=== PATIENT | female | born 1975 | race Caucasian/White ===

== ENCOUNTER 2017-06-29 06:42 | Day surgery (SDC) | payer BC ==
[2017-06-25 10:11] VITALS: BMI 33.8
[~2017-06-29 06:42] MED LIST: LACTATED RINGERS 1,000 ML IV SCH; MIDAZOLAM 2 MG/2 ML VIAL IV PRN; MORPHINE SULFATE 4 MG/ML SYRINGE IV PRN; Pre Op ABX Message 1 EACH MISC MISCELLANE ONE
[2017-06-29] MEDS ORDERED: ONDANSETRON 4 MG/2 ML VIAL IVP ONE (07:06)
[2017-06-29] MEDS ORDERED: DEXAMETHASONE SOD PHOSPHATE 10 MG/ML 1 ML VIAL IV ONE (07:07)
[2017-06-29] MEDS ORDERED: BUPIVACAINE (PF) 0.25% 30 ML VIAL SQ ONE ×2 (07:36→08:11)
[2017-06-29] MEDS ORDERED: SUCCINYLCHOLINE CHLORIDE 100 MG/5 ML SYR IV ONE (07:38)
[2017-06-29] MEDS ORDERED: HYDROmorphone (PF) 1 MG/ML ONE (07:38)
[2017-06-29] MEDS ORDERED: ACETAMINOPHEN IV (For NPO) 1,000 MG/100 ML VIAL ONE (07:38)
[2017-06-29] MEDS ORDERED: PROPOFOL 10 MG/ML 20 ML VIAL IV ONE (07:38)
[2017-06-29] MEDS ORDERED: KETOROLAC 30 MG/ML 1 ML VIAL ONE (07:38)
[2017-06-29] MEDS ORDERED: fentaNYL (PF) 50 MCG/ML 2 ML AMP ONE (07:38)
[2017-06-29] MEDS ORDERED: LIDOCAINE 1% INJ 10MG/ML (20 ML MDV) ONE (07:38)
[2017-06-29] MEDS ORDERED: MIDAZOLAM 2 MG/2 ML VIAL ONE (07:38)
--- NOTE | 2017-06-29 08:22 | P.OP ---
Date of Procedure: 06/29/17 Preoperative Diagnosis: Family planning Postoperative Diagnosis: Same Procedure(s) Performed: Laparoscopic tubal ligation with Filshie clips Anesthesia: MISBAH Surgeon: Ranjan Trujillo Estimated Blood Loss (ml): 3 IV fluids (ml): 500 Urine output (ml): 50 Pathology: none sent Condition: stable Disposition: same day Operative Findings: Normal female pelvic anatomy Description of Procedure: Patient was taken to the operating suite where a general anesthetic was found be adequate. She was prepped and draped in the normal sterile fashion and placed in dorsal lithotomy position. Initially a speculum was inserted into the vagina and the anterior lip of the cervix was identified and grasped with an Allis clamp. Uterus was then sounded to 10 cm and cervix was minimally dilated. A Heather manipulator was inserted without difficulty speculum and Allis clamp were removed and red rubber catheter was used to drain the bladder of urine. Gloves were then changed and attention was turned to abdominal portion procedure where 3 mL of quarter percent Marcaine was injected periumbilically. Through this injected anesthetic a 5 mm skin incision was made and through this incision under direct visualization with an optical trocar and sleeve the camera was inserted. Once peritoneal placement was assured gas was allowed to fully insufflate the abdomen and patient's placement steep Trendelenburg position. A second 8 mm skin incision was then made in her scar in the midline. An 8 mm trocar and sleeve were inserted again under direct visualization and observations the pelvis were noted as above. Fallopian tubes were identified first the right tube than the left tube had a Filshie clip applied approximately 3 cm from uterine cornu. With no bleeding noted from the mesosalpinx instruments were removed and gas was allowed to fully expel from the abdomen. 5 deep breaths were provided during this process. Sleeves were then removed and 4-0 Vicryl was used to close the incision incisions subcuticularly and the remaining 7 mL of quarter percent Marcaine was injected around these incisions. Sponge, lap, needle counts were all correct 2. Patient was then taken to the recovery room in stable and satisfactory condition. Plan - Discharge Summary New Discharge Prescriptions: New Ibuprofen [Motrin] 800 mg PO Q8HR PRN #30 tab PRN Reason: Pain No Action Cholestyramine (with Sugar) [Questran] 4 gm PO DAILY Atenolol 12.5 mg PO DAILY Multivitamins, Thera [Multivitamin (formulary)] 1 tab PO DAILY [place]-3 Fatty Acids/Fish Oil [Fish Oil 1,000 mg Softgel] 1 each PO DAILY Discharge Medication List Cholestyramine (with Sugar) [Questran] 4 gm PO DAILY 01/11/15 [History] Atenolol 12.5 mg PO DAILY 06/25/17 [History] Multivitamins, Thera [Multivitamin (formulary)] 1 tab PO DAILY 06/25/17 [History ] [place]-3 Fatty Acids/Fish Oil [Fish Oil 1,000 mg Softgel] 1 each PO DAILY [History] Ibuprofen [Motrin] 800 mg PO Q8HR PRN #30 tab 06/29/17 [Rx] Follow up Appointment(s)/Referral(s): Ranjan Trujillo DO [Doctor of Osteopathic Medicine] - 2 Weeks Activity/Diet/Wound Care/Special Instructions: No heavy lifting, limit stairs and driving, and pelvic rest. If any high temperatures, heavy bleeding, or severe pain call my office Discharge Disposition: HOME SELF-CARE
[2017-06-29 08:34] VITALS: TEMP 97.2
[2017-06-29 09:54] VITALS: RESP 16
[2017-06-29 10:04] VITALS: BP 144/98; PULSE 64
--- NOTE | 2017-07-04 20:19 | P.HPOB ---
History of Present Illness H&P Date: 07/04/17 Chief Complaint: Family planning Patient is a 42-year-old female who is completed her family planning and desires permanent sterilization. Risks/benefits/alternatives to a laparoscopic tubal occlusion with CLIPS was discussed with the patient in detail and all questions were answered for her prior to proceeding to the operating room. On physical exam vital signs are stable and afebrile. Heart regular, lungs clear, extremities without pain. Osteopathic exam is unremarkable. Abdomen soft nontender and the pelvic exams unremarkable. Assessment family planning. Plan laparoscopic tubal occlusion with Filshie clips Past Medical History Past Medical History: Hypertension History of Any Multi-Drug Resistant Organisms: None Reported Past Surgical History: Section, Cholecystectomy Additional Past Surgical History / Comment(s): rt breast lumpectomy, thyroid scope Past Anesthesia/Blood Transfusion Reactions: No Reported Reaction Smoking Status: Never smoker - Past Family History Sister(s) Family Medical History: Cancer Additional Family Medical History / Comment(s): lung,kidney Mother Family Medical History: Cancer, Thyroid Disorder Additional Family Medical History / Comment(s): uterine cancer Medications and Allergies Home Medications Medication Instructions Recorded Confirmed Type Cholestyramine (with Sugar) 4 gm PO DAILY 01/11/15 06/29/17 History [Questran] Atenolol 12.5 mg PO DAILY 06/25/17 06/29/17 History Multivitamins, Thera [Multivitamin 1 tab PO DAILY 06/25/17 06/25/17 History (formulary)] [place]-3 Fatty Acids/Fish Oil [Fish 1 each PO DAILY 06/25/17 06/25/17 History Oil 1,000 mg Softgel] Ibuprofen [Motrin] 800 mg PO Q8HR PRN #30 tab 06/29/17 Rx Allergies Allergy/AdvReac Type Severity Reaction Status Date / Time No Known Allergies Allergy Verified 06/25/17 09:58 Exam Osteopathic Statement: *. No significant issues noted on an osteopathic structural exam other than those noted in the History and Physical/Consult.
== END 2017-06-29 10:29 | disposition home or self-care (01) ==
LOC: OR 06:42
PROVIDERS: ATTEND Obstetrics & Gynecology
DX: Z30.2 Encounter for sterilization (principal); I10 Essential (primary) hypertension; Z79.899 Other long term (current) drug therapy
CPT/HCPCS: 58671; 81025; J2250; J1100; J2405; J2001; J3010; J1885; J1170; J0131; J0330; J2704

== ENCOUNTER 2019-03-13 08:36 | Day surgery (SDC) | payer BC, OTHER ==
[2019-03-12 09:12] VITALS: BMI 34.7
--- NOTE | 2019-03-12 18:53 | P.HPOB ---
History of Present Illness H&P Date: 03/12/19 Chief Complaint: Menorrhagia Faye is a 44-year-old female with a history of heavy vaginal bleeding for approximately 1 year. Symptoms seem to be worsening and progressing making it difficult for her to function as the bleeding is quite heavy. Ultrasound was done revealing a possible polyp with 2 small fibroids she is therefore scheduled for D&C with hysteroscopy NovaSure ablation at her request to alleviate the heavy vaginal bleeding. She did have a level of prolactin at 33 which needs to at some point be reevaluated, however there is a minimal elevation and if anything was hyperprolactinemic she would have amenorrhea not menorrhagia. 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 Past Medical History Past Medical History: Hypertension Additional Past Medical History / Comment(s): heavy periods History of Any Multi-Drug Resistant Organisms: None Reported Past Surgical History: Breast Surgery, Section, Cholecystectomy, Tubal Ligation Additional Past Surgical History / Comment(s): benign rt breast lumpectomy, thyroid scope Past Anesthesia/Blood Transfusion Reactions: No Reported Reaction Past Psychological History: No Psychological Hx Reported Smoking Status: Never smoker Past Alcohol Use History: Occasional Past Drug Use History: None Reported - Past Family History Sister(s) Family Medical History: Cancer Additional Family Medical History / Comment(s): lung,kidney Mother Family Medical History: Cancer, Thyroid Disorder Additional Family Medical History / Comment(s): uterine cancer Medications and Allergies Home Medications Medication Instructions Recorded Confirmed Type Cholestyramine (with Sugar) 4 gm PO DAILY 01/11/15 03/12/19 History [Questran] Atenolol 12.5 mg PO QAM 06/25/17 03/12/19 History Multivitamins, Thera [Multivitamin 1 tab PO DAILY 06/25/17 03/12/19 History (formulary)] [place]-3 Fatty Acids/Fish Oil [Fish 1 each PO DAILY 06/25/17 03/12/19 History Oil 1,000 mg Softgel] Allergies Allergy/AdvReac Type Severity Reaction Status Date / Time No Known Allergies Allergy Verified 03/12/19 09:02 Exam Osteopathic Statement: *. No significant issues noted on an osteopathic struct ural exam other than those noted in the History and Physical/Consult. Intake and Output 03/12/19 03/12/19 03/12/19 06:59 14:59 22:59 Other: Weight 86.183 kg - OBG Physical Exam Breast: both: normal (no masses) Abdomen: bowel sounds normal, no diffuse tenderness, no bruit present, no guardi ng noted, no hepatomegaly, no splenomegaly, no mass Vulva: both: normal Vagina: normal moisture, no discharge Cervix: no lesion, no discharge Uterus: normal size, normal contour Adnexa: both: normal Anus/Rectum: normal perianal skin, no rectal mass, no hemorrhoids, heme negative
[~2019-03-13 08:36] MED LIST changes: +DEXAMETHASONE SOD PHOSPHATE 10 MG/ML 1 ML VIAL IV ONE; +LIDOCAINE 1% 20 ML VIAL (10MG/ML) FOR IV START INTRADERMA PRN; -MORPHINE SULFATE 4 MG/ML SYRINGE IV PRN; +ONDANSETRON 4 MG/2 ML VIAL IVP ONE; +fentaNYL (PF) 50 MCG/ML 2 ML AMP IV PRN
[2019-03-13] MEDS ORDERED: fentaNYL (PF) 50 MCG/ML 2 ML AMP ONE (09:44)
[2019-03-13] MEDS ORDERED: PROPOFOL 10 MG/ML 20 ML VIAL IV ONE (09:44)
[2019-03-13] MEDS ORDERED: KETOROLAC 30 MG/ML 1 ML VIAL ONE (09:44)
[2019-03-13] MEDS ORDERED: MIDAZOLAM 2 MG/2 ML VIAL ONE (09:44)
[2019-03-13] MEDS ORDERED: LIDOCAINE 1% INJ 10MG/ML (20 ML MDV) ONE (09:44)
--- NOTE | 2019-03-13 10:30 | P.OP ---
Date of Procedure: 03/13/19 Preoperative Diagnosis: Menorrhagia Postoperative Diagnosis: Same possible polyp Procedure(s) Performed: D&C with hysteroscopy and NovaSure Anesthesia: MISBAH Surgeon: Ranjan Trujillo Estimated Blood Loss (ml): 5 Pathology: other (Uterine curettings) Condition: stable Disposition: same day Operative Findings: Significant amount of blood in the uterus limiting visualization Description of Procedure: Patient was taken to the operating suite where a general anesthetic was found be adequate. She was prepped and draped in normal sterile fashion and placed in the dorsal lithotomy position. Initially a weighted speculum was inserted into the vagina and the anterior lip of the cervix was identified and grasped with a single-tooth tenaculum. Cervix was then dilated and uterus was sounded to 10 cm. Camera was then inserted with limited visualization. Camera was therefore removed and sharp curettings of endometrium were obtained. This tissue was collected and placed on Telfa paper and sent to pathology. Once this was completed NovaSure systems inserted with length of 4.5 and with the 4 it was tested and once it passes patency test it was enabled and burned for 85 seconds. It was then removed and camera was reinserted into the uterus was excellent burn noted. All incidents were then removed. Sponge, lap, needle counts were correct 2. Patient was then taken to the recovery room in stable and satisfactory condition. Plan - Discharge Summary Discharge Rx Participant: No New Discharge Prescriptions: New Ibuprofen [Motrin] 600 mg PO Q6HR PRN #30 tab PRN Reason: Pain No Action Cholestyramine (with Sugar) [Questran] 4 gm PO DAILY Atenolol 12.5 mg PO QAM Multivitamins, Thera [Multivitamin (formulary)] 1 tab PO DAILY [place]-3 Fatty Acids/Fish Oil [Fish Oil 1,000 mg Softgel] 1 each PO DAILY Discharge Medication List Cholestyramine (with Sugar) [Questran] 4 gm PO DAILY 01/11/15 [History] Atenolol 12.5 mg PO QAM 06/25/17 [History] Multivitamins, Thera [Multivitamin (formulary)] 1 tab PO DAILY 06/25/17 [History] [place]-3 Fatty Acids/Fish Oil [Fish Oil 1,000 mg Softgel] 1 each PO DAILY 06/25/17 [History] Ibuprofen [Motrin] 600 mg PO Q6HR PRN #30 tab 03/13/19 [Rx] Follow up Appointment(s)/Referral(s): Ranjan Trujillo DO [Doctor of Osteopathic Medicine] - 2 Weeks Activity/Diet/Wound Care/Special Instructions: No heavy lifting today, pelvic rest, limit stairs and an no driving today. If any high temperatures, heavy bleeding, or severe pain call my office Discharge Disposition: HOME SELF-CARE
[2019-03-13 10:31] VITALS: TEMP 96.8
[2019-03-13] MEDS ORDERED: hydrALAZINE HCL 20 MG/ML 1 ML VIAL IVP ONE (10:47)
[2019-03-13] MEDS: HYDROmorphone 0.5 MG/0.5 ML SYRINGE IVP PRN ×2 (11:05→11:09)
[2019-03-13 11:45] VITALS: RESP 16
[2019-03-13 12:04] VITALS: BP 132/88; PULSE 60
== END 2019-03-13 12:00 | disposition home or self-care (01) ==
LOC: OR 08:36
PROVIDERS: ATTEND Obstetrics & Gynecology
DX: N84.0 Polyp of corpus uteri (principal); N92.0 Excessive and frequent menstruation with regular cycle; I10 Essential (primary) hypertension; K21.9 Gastro-esophageal reflux disease without esophagitis; E66.9 Obesity, unspecified; Z90.49 Acquired absence of other specified parts of digestive tract; Z98.890 Other specified postprocedural states; Z68.35 Body mass index [BMI] 35.0-35.9, adult; Z79.899 Other long term (current) drug therapy; Z98.51 Tubal ligation status; Z80.1 Family history of malignant neoplasm of trachea, bronchus and lung; Z80.51 Family history of malignant neoplasm of kidney; Z83.49 Family history of other endocrine, nutritional and metabolic diseases; Z80.49 Family history of malignant neoplasm of other genital organs
CPT/HCPCS: 81025; 88305; 58563; J2250; J0360; J1100; J2405; J2001; J3010; J1885; J2704; J1170

== ENCOUNTER → 2019-08-19 | Outpatient (CLI) | payer OTHER ==
--- NOTE | 2019-08-20 11:00 | MM ---
Reason for exam: screening (asymptomatic). Last mammogram was performed 2 years and 3 months ago. History: Family history of breast cancer in maternal grandmother at age 60 and breast cancer in maternal aunt. Benign excisional biopsy of the right breast, January 06, 2011. Took hormonal contraceptives for 17 years beginning at age 18. Physical Findings: A clinical breast exam by your physician is recommended on an annual basis and results should be correlated with mammographic findings. MG Screening Mammo w CAD Bilateral CC and MLO view(s) were taken. Prior study comparison: May 24, 2017, bilateral MG screening mammo w CAD. February 26, 2014, bilateral MG screening mammo w CAD. The breast tissue is heterogeneously dense. This may lower the sensitivity of mammography. There is a 2.6cm left retroareolar mass and a 5mm right upper outer quadrant posterior depth oval mass. ASSESSMENT: Incomplete: need additional imaging evaluation, BI-RAD 0 RECOMMENDATION: Ultrasound of both breasts. [facility] will attempt to contact patient to return for ultrasound.
== END | disposition home or self-care (01) ==
LOC: RADMAMWWP 07:32
PROVIDERS: ATTEND Internal Medicine
DX: Z12.31 Encounter for screening mammogram for malignant neoplasm of breast (principal)
CPT/HCPCS: 77067

== ENCOUNTER → 2019-08-29 | Outpatient (CLI) | payer OTHER ==
--- NOTE | 2019-08-29 10:23 | USB ---
Reason for exam: additional evaluation requested from abnormal screening. History: Family history of breast cancer in maternal grandmother at age 60 and breast cancer in maternal aunt at age 60. Benign excisional biopsy of the right breast, January 06, 2011. Took hormonal contraceptives for 17 years beginning at age 18. Physical Findings: Nurse did not find any significant physical abnormalities on exam. US Breast Workup Limited THEO Right limited breast ultrasound including focal area of concern, retroareolar and axilla demonstrates a 6 x 3 x 6mm cystic lesion at 10 o'clock and a 15 x 8 x 12mm cystic cluster at 12 o'clock. Left limited breast ultrasound including focal area of concern, retroareolar and axilla demonstrates a 29 x 12 x 24mm cystic lesion at 12 o'clock. These results were verbally communicated with the patient and result sheet given to the patient on 08/29/19. ASSESSMENT: Benign, BI-RAD 2 RECOMMENDATION: Return to routine screening mammogram schedule for both breasts.
== END | disposition home or self-care (01) ==
LOC: RADUSWWP 07:05
PROVIDERS: ATTEND Internal Medicine
DX: R92.8 Other abnormal and inconclusive findings on diagnostic imaging of breast (principal)

== ENCOUNTER 2020-04-13 00:40 | Emergency (ER) | payer MEDICAID, OTHER ==
[2020-04-13 00:49] VITALS: RESP 18
[2020-04-13] MEDS ORDERED: MORPHINE SULFATE 4 MG/ML SYRINGE IV STA (01:00)
[2020-04-13] MEDS ORDERED: SODIUM CHLORIDE 0.9% 1,000 ML IV STA (01:00)
[2020-04-13] MEDS ORDERED: ONDANSETRON 4 MG/2 ML VIAL IVP STA (01:00)
--- NOTE | 2020-04-13 01:06 | ED ---
General Adult HPI - General Chief complaint: Abdominal Pain Stated complaint: LT flank pain Time Seen by Provider: 04/13/20 00:52 Source: patient, family Mode of arrival: ambulatory Limitations: no limitations - History of Present Illness Initial comments: 45-year-old female presents to the emergency department this evening with complaints of left lower quadrant abdominal pain, onset 3 hours prior to arrival. Patient states she did have a similar episode of pain yesterday that resolved spontaneously. Denies fever, nausea, vomiting, or diarrhea. States the pain does radiate to the left flank and left groin. Reports an episode of lower abdominal cramping while attempting to void. Patient denies any recent rash, chills, cough, shortness of breath, chest pain, constipation, back pain, numbness, tingling, dizziness, weakness, hematuria, dysuria, urinary urgency, urinary frequency, headache, visual changes, or any other complaints. She has h ad previous cholecystectomy, uterine ablation, tubal ligation, and . - Related Data Home Medications Medication Instructions Recorded Confirmed Cholestyramine (with Sugar) 4 gm PO DAILY 01/11/15 03/13/19 [Questran] Multivitamins, Thera [Multivitamin 1 tab PO DAILY 06/25/17 03/13/19 (formulary)] [place]-3 Fatty Acids/Fish Oil [Fish 1 each PO DAILY 06/25/17 03/13/19 Oil 1,000 mg Softgel] atenoloL [Atenolol] 12.5 mg PO QAM 06/25/17 03/13/19 Previous Rx's Medication Instructions Recorded Ibuprofen [Motrin] 600 mg PO Q6HR PRN #30 tab 03/13/19 Ibuprofen [Motrin] 600 mg PO Q8HR PRN #30 tab 04/13/20 Allergies Allergy/AdvReac Type Severity Reaction Status Date / Time No Known Allergies Allergy Verified 04/13/20 00:49 Review of Systems ROS Statement: Those systems with pertinent positive or pertinent negative responses have been documented in the HPI. ROS Other: All systems not noted in ROS Statement are negative. Past Medical History Past Medical History: Hypertension Additional Past Medical History / Comment(s): heavy periods History of Any Multi-Drug Resistant Organisms: None Reported Past Surgical History: Breast Surgery, Section, Cholecystectomy, Tubal Ligation Additional Past Surgical History / Comment(s): benign rt breast lumpectomy, thyroid scope Past Anesthesia/Blood Transfusion Reactions: No Reported Reaction Past Psychological History: No Psychological Hx Reported Smoking Status: Never smoker Past Alcohol Use History: Occasional Past Drug Use History: None Reported - Past Family History Sister(s) Family Medical History: Cancer Additional Family Medical History / Comment(s): lung,kidney Mother Family Medical History: Cancer, Thyroid Disorder Additional Family Medical History / Comment(s): uterine cancer General Exam Limitations: no limitations (Well-developed, well-nourished female in no acute distress. Initial temperature 98.5, pulse 57, respirations 18, blood pressure 176/116, pulse ox 96% on room air.) General appearance: alert, in no apparent distress Respiratory exam: Present: normal lung sounds bilaterally. Absent: respiratory distress, wheezes, rales, rhonchi, stridor Cardiovascular Exam: Present: regular rate, normal rhythm, normal heart sounds. Absent: systolic murmur, diastolic murmur, rubs, gallop, clicks GI/Abdominal exam: Present: soft, normal bowel sounds. Absent: distended, tenderness Neurological exam: Present: alert, oriented X3 Psychiatric exam: Present: normal affect, normal mood Skin exam: Present: warm, dry, intact, normal color. Absent: rash Course Vital Signs 04/13/20 00:47 Temperature 98.5 F Pulse Rate 57 L Respiratory 18 Rate Blood Pressure 176/116 O2 Sat by Pulse 96 Oximetry Medical Decision Making - Medical Decision Making 45-year-old female presents to the emergency department this evening with complaints of lower abdominal pain that localizes the left side and radiates to the left flank and left groin. Patient states pain began yesterday and resolved spontaneously before recurring again this evening. Patient denies any nausea, vomiting, diarrhea, or fever. IV access was obtained and blood work collected. Patient was given pain medication, nausea medication, and IV fluids. States she is feeling much improved. Patient did have a slightly elevated white blood cell count at 12.2, but was not felt to be related to an infectious process. CT of the abdomen and pelvis indicates multiple fibroids in the uterus therefore patient was advised to follow-up with both primary care and HIV PREVENTION SPECIALIST for further evaluation and care. Return parameters were discussed. Patient verbalizes understanding and agrees with this plan. - Lab Data Result diagrams: 04/13/20 01:16 04/13/20 01:16 Lab Results 04/13/20 04/13/20 04/13/20 Range/Units 01:16 01:16 01:16 WBC 12.2 H (3.8-10.6) k/uL RBC 4.77 (3.80-5.40) m/uL Hgb 13.9 (11.4-16.0) gm/dL Hct 42.3 (34.0-46.0) % MCV 88.5 (80.0-100.0) fL MCH 29.1 (25.0-35.0) pg MCHC 32.8 (31.0-37.0) g/dL RDW 12.2 (11.5-15.5) % Plt Count 427 (150-450) k/uL Neutrophils % 66 % Lymphocytes % 22 % Monocytes % 6 % Eosinophils % 3 % Basophils % 1 % Neutrophils # 8.1 H (1.3-7.7) k/uL Lymphocytes # 2.7 (1.0-4.8) k/uL Monocytes # 0.8 (0-1.0) k/uL Eosinophils # 0.4 (0-0.7) k/uL Basophils # 0.1 (0-0.2) k/uL Sodium 136 L (137-145) mmol/L Potassium 4.7 (3.5-5.1) mmol/L Chloride 105 (98-107) mmol/L Carbon Dioxide 23 (22-30) mmol/L Anion Gap 8 mmol/L BUN 13 (7-17) mg/dL Creatinine 0.72 (0.52-1.04) mg/dL Est GFR (CKD-EPI)AfAm >90 (>60 ml/min/1.73 sqM) Est GFR (CKD-EPI)NonAf >90 (>60 ml/min/1.73 sqM) Glucose 107 H (74-99) mg/dL Plasma Lactic Acid [place] (0.7-2.0) mmol/L Calcium 9.4 (8.4-10.2) mg/dL Total Bilirubin 0.4 (0.2-1.3) mg/dL AST 34 (14-36) U/L ALT 27 (4-34) U/L Alkaline Phosphatase 38 (38-126) U/L Total Protein 7.3 (6.3-8.2) g/dL Albumin 4.0 (3.5-5.0) g/dL Lipase 167 (23-300) U/L Urine Color Light Yellow Urine Appearance Clear (Clear) Urine pH 6.0 (5.0-8.0) Ur Specific [place] 1.007 (1.001-1.035) Urine Protein Negative (Negative) Urine Glucose (UA) Negative (Negative) Urine Ketones Negative (Negative) Urine Blood Negative (Negative) Urine Nitrite Negative (Negative) Urine Bilirubin Negative (Negative) Urine Urobilinogen <2.0 (<2.0) mg/dL Ur Leukocyte Esterase Trace H (Negative) Urine RBC 1 (0-5) /hpf Urine WBC 4 (0-5) /hpf Ur Squamous Epith Cells 2 (0-4) /hpf Amorphous Sediment Rare H (None) /hpf Urine Bacteria Rare H (None) /hpf Hyaline Casts 1 (0-2) /lpf Urine Mucus Rare H (None) /hpf Urine HCG, Qual (Not Detectd) 04/13/20 04/13/20 Range/Units 01:16 01:16 WBC (3.8-10.6) k/uL RBC (3.80-5.40) m/uL Hgb (11.4-16.0) gm/dL Hct (34.0-46.0) % MCV (80.0-100.0) fL MCH (25.0-35.0) pg MCHC (31.0-37.0) g/dL RDW (11.5-15.5) % Plt Count (150-450) k/uL Neutrophils % % Lymphocytes % % Monocytes % % Eosinophils % % Basophils % % Neutrophils # (1.3-7.7) k/uL Lymphocytes # (1.0-4.8) k/uL Monocytes # (0-1.0) k/uL Eosinophils # (0-0.7) k/uL Basophils # (0-0.2) k/uL Sodium (137-145) mmol/L Potassium (3.5-5.1) mmol/L Chloride (98-107) mmol/L Carbon Dioxide (22-30) mmol/L Anion Gap mmol/L BUN (7-17) mg/dL Creatinine (0.52-1.04) mg/dL Est GFR (CKD-EPI)AfAm (>60 ml/min/1.73 sqM) Est GFR (CKD-EPI)NonAf (>60 ml/min/1.73 sqM) Glucose (74-99) mg/dL Plasma Lactic Acid [place] 1.1 (0.7-2.0) mmol/L Calcium (8.4-10.2) mg/dL Total Bilirubin (0.2-1.3) mg/dL AST (14-36) U/L ALT (4-34) U/L Alkaline Phosphatase (38-126) U/L Total Protein (6.3-8.2) g/dL Albumin (3.5-5.0) g/dL Lipase (23-300) U/L Urine Color Urine Appearance (Clear) Urine pH (5.0-8.0) Ur Specific [place] (1.001-1.035) Urine Protein (Negative) Urine Glucose (UA) (Negative) Urine Ketones (Negative) Urine Blood (Negative) Urine Nitrite (Negative) Urine Bilirubin (Negative) Urine Urobilinogen (<2.0) mg/dL Ur Leukocyte Esterase (Negative) Urine RBC (0-5) /hpf Urine WBC (0-5) /hpf Ur Squamous Epith Cells (0-4) /hpf Amorphous Sediment (None) /hpf Urine Bacteria (None) /hpf Hyaline Casts (0-2) /lpf Urine Mucus (None) /hpf Urine HCG, Qual Not Detected (Not Detectd) - Radiology Data Radiology results: report reviewed, image reviewed CT of the abdomen and pelvis was obtained. Report was reviewed in its entirety. Impression by Dr. Lazcano includes a normal caliber appendix in the right lower quadrant. No bowel obstruction or significant focal bowel mucosal abnormality. No free intraperitoneal fluid or pneumoperitoneum. The uterus is multilobulated, is heterogeneous and a slightly more prominent from prior exam. Findings are most consistent with multiple fibroids of uncertain clinical significance. Disposition Clinical Impression: Abdominal pain, Fibroid uterus Disposition: HOME SELF-CARE Condition: Good Instructions (If sedation given, give patient instructions): Abdominal Pain (ED) Additional Instructions: Take pain medication as needed. Follow up with primary care physician for recheck in 1-2 days. Follow-up with gynecology for further evaluation. Return to the emergency department immediately for any new, worsening, or concerning symptoms. Prescriptions: Ibuprofen [Motrin] 600 mg PO Q8HR PRN #30 tab PRN Reason: Pain Is patient prescribed a controlled substance at d/c from ED?: No Referrals: Madeline Ware MD [Primary Care Provider] - 1-2 days Time of Disposition: 02:23
[2020-04-13 01:27] LABS: Amorphous Sediment,Urine Rare /hpf; Appearance,Urine Clear (Clear); Bacteria,Urine Rare /hpf; Basophils # (A) 0.1 k/uL (0-0.2); Basophils % (A) 1 %; Bilirubin,Urine Negative (Negative); Blood,Urine Negative (Negative); Color,Urine Light Yellow; Eosinophils # (A) 0.4 k/uL (0-0.7); Eosinophils % (A) 3 %; Glucose,Urine (UA) Negative (Negative); HCT 42.3 % (34.0-46.0); HGB 13.9 gm/dL (11.4-16.0); Hyaline Casts,Urine 1 /lpf (0-2); Ketones,Urine Negative (Negative); Leukocyte Esterase,Urine Trace (Negative); Lymphocytes # (A) 2.7 k/uL (1.0-4.8); Lymphocytes % (A) 22 %; MCH 29.1 pg (25.0-35.0); MCHC 32.8 g/dL (31.0-37.0); MCV 88.5 fL (80.0-100.0); Mean Platelet Volume 6.9; Monocytes # (A) 0.8 k/uL (0-1.0); Monocytes % (A) 6 %; Mucus,Urine Rare /hpf; Neutrophils # (A) 8.1 k/uL (1.3-7.7); Neutrophils % (A) 66 %; Nitrite,Urine Negative (Negative); Platelet Count 427 k/uL (150-450); Protein,Urine Negative (Negative); RBC 4.77 m/uL (3.80-5.40); RBC,Urine 1 /hpf (0-5); RDW 12.2 % (11.5-15.5); Specific Gravity,Urine 1.007 (1.001-1.035); Squamous Epithelial Cell,Urine 2 /hpf (0-4); Urobilinogen,Urine <2.0 mg/dL (<2.0); WBC 12.2 k/uL (3.8-10.6); WBC,Urine 4 /hpf (0-5)
[2020-04-13 01:35] LABS: African American GFR (CKD) >90 (>60 ml/min/1.73 sqM); Anion Gap 8 mmol/L; Calcium 9.4 mg/dL (8.4-10.2); Carbon Dioxide 23 mmol/L (22-30); Chloride 105 mmol/L (98-107); Glucose 107 mg/dL (74-99); Non-African American GFR(CKD) >90 (>60 ml/min/1.73 sqM); Sodium 136 mmol/L (137-145); Total Bilirubin 0.4 mg/dL (0.2-1.3); Total Protein 7.3 g/dL (6.3-8.2)
[2020-04-13 01:36] LABS: Potassium 4.7 mmol/L (3.5-5.1)
[2020-04-13 01:37] LABS: ALT 27 U/L (4-34); AST 34 U/L (14-36); Alkaline Phosphatase 38 U/L (38-126); Blood Urea Nitrogen 13 mg/dL (7-17)
--- NOTE | 2020-04-13 02:13 | CT ---
EXAM: CT Abdomen and Pelvis With Intravenous Contrast CLINICAL HISTORY: ITS.REASON CT Reason: abdominal pain TECHNIQUE: Axial computed tomography images of the abdomen and pelvis with intravenous contrast. CTDI is 27.67 mGy and DLP is 1176.30 mGy-cm. This CT exam was performed using one or more of the following dose reduction techniques: automated exposure control, adjustment of the mA and/or kV according to patient size, and/or use of iterative reconstruction technique. COMPARISON: 10/04/11 FINDINGS: Lung bases: Unremarkable. No mass. No consolidation. Mediastinum: A small hiatal hernia is incidentally noted. ABDOMEN: Liver: Unremarkable. No mass. Gallbladder and bile ducts: Cholecystectomy. No ductal dilation. Pancreas: Unremarkable. No mass. No ductal dilation. Spleen: Unremarkable. No splenomegaly. Adrenals: Unremarkable. No mass. Kidneys and ureters: Unremarkable. No solid mass. No hydronephrosis. Delayed phase imaging demonstrates normal excreted contrast in the renal collecting systems and ureters. Stomach and bowel: Unremarkable. No obstruction. No mucosal thickening. PELVIS: Appendix: A normal caliber appendix is noted in the right lower quadrant. Bladder: Unremarkable. No mass. Reproductive: The uterus is multilobulated, is heterogeneous and is slightly more prominent from the previous examination. ABDOMEN and PELVIS: Intraperitoneal space: Unremarkable. No free air. No significant fluid collection. Bones/joints: No acute fracture. No dislocation. Soft tissues: Unremarkable. Vasculature: Unremarkable. No abdominal aortic aneurysm. Lymph nodes: Unremarkable. No enlarged lymph nodes. IMPRESSION: 1. A normal caliber appendix is noted in the right lower quadrant. No bowel obstruction or significant focal bowel mucosal abnormality. No free intraperitoneal fluid or pneumoperitoneum. 2. The uterus is multilobulated, is heterogeneous and is slightly more prominent from the previous examination. Findings are most consistent with multiple fibroids of uncertain clinical significance.
[2020-04-13] MEDS ORDERED: ACET/COD 300 MG/30 MG STARTER PACK 6 TAB BTL PO STA (02:22)
[2020-04-13 02:57] VITALS: BP 152/91; PULSE 52; TEMP 97.7
== END 2020-04-13 02:57 | disposition home or self-care (01) ==
LOC: EC 00:40
DX: D25.9 Leiomyoma of uterus, unspecified (principal); I10 Essential (primary) hypertension; Z79.899 Other long term (current) drug therapy; Z90.49 Acquired absence of other specified parts of digestive tract
CPT/HCPCS: 36415; 80053; 83605; 83690; 85025; 81001; 81025; 74177; 99284; 96374; 96361; J2270; Q9967

== ENCOUNTER → 2020-10-29 | Outpatient (CLI) | payer MEDICAID ==
--- NOTE | 2020-10-29 08:25 | US ---
EXAMINATION TYPE: US pelvic complete DATE OF EXAM: 10/29/2020 COMPARISON: CT 2019 CLINICAL HISTORY: N93.8 Dysfunctional uterine bleeding. Bleeding x couple weeks, 1, para 1, u terine ablation 2 years ago, history of and tubal ligation, history of uterine fibroids. TECHNIQUE: . Transabdominal sonographic images of the pelvis were acquired. Date of LMP: Unknown EXAM MEASUREMENTS: Uterus: 8.1 x 4.6 x 6.7 cm Endometrial Stripe: 0.5 cm Right Ovary: 2.4 x 1.7 x 2.3 cm Left Ovary: 2.3 x 1.2 x 1.9 cm 1. Uterus: anteverted, heterogeneous with multiple hypoechoic fibroids with largest measuring 3.3 x 3.7 x 3.6cm 2. Endometrium: wnl 3. Right Ovary: wnl 4. Left Ovary: wnl 5. Bilateral Adnexa: wnl 6. Posterior cul-de-sac: wnl IMPRESSION: Leiomyomatous change of the uterus.
== END | disposition home or self-care (01) ==
LOC: RADUSWWP 07:44
PROVIDERS: ATTEND Obstetrics & Gynecology
DX: D25.9 Leiomyoma of uterus, unspecified (principal); N93.8 Other specified abnormal uterine and vaginal bleeding; Z86.018 Personal history of other benign neoplasm
CPT/HCPCS: 76856

== ENCOUNTER → 2020-12-15 | Outpatient (CLI) | payer MEDICAID | END | disposition home or self-care (01) | LOC: LABWHC1 08:48 | PROVIDERS: ATTEND Obstetrics & Gynecology | DX: Z01.812 Encounter for preprocedural laboratory examination (principal); Z01.818 Encounter for other preprocedural examination ==

== ENCOUNTER → 2021-02-05 | Outpatient (CLI) | payer MEDICAID ==
[2021-02-05 10:32] LABS: Basophils # (A) 0.1 k/uL (0-0.2); Basophils % (A) 1 %; Eosinophils # (A) 0.2 k/uL (0-0.7); Eosinophils % (A) 4 %; HCT 42.9 % (34.0-46.0); HGB 14.3 gm/dL (11.4-16.0); Lymphocytes # (A) 1.8 k/uL (1.0-4.8); Lymphocytes % (A) 27 %; MCH 30.3 pg (25.0-35.0); MCHC 33.4 g/dL (31.0-37.0); MCV 90.6 fL (80.0-100.0); Mean Platelet Volume 6.6; Monocytes # (A) 0.3 k/uL (0-1.0); Monocytes % (A) 5 %; Neutrophils # (A) 4.1 k/uL (1.3-7.7); Neutrophils % (A) 61 %; Platelet Count 370 k/uL (150-450); RBC 4.74 m/uL (3.80-5.40); RDW 12.9 % (11.5-15.5); WBC 6.7 k/uL (3.8-10.6)
[2021-02-05 10:42] LABS: African American GFR (CKD) >90 (>60 ml/min/1.73 sqM); Anion Gap 7 mmol/L; Blood Urea Nitrogen 16 mg/dL (7-17); Calcium 9.6 mg/dL (8.4-10.2); Carbon Dioxide 29 mmol/L (22-30); Chloride 103 mmol/L (98-107); Glucose 86 mg/dL (74-99); Non-African American GFR(CKD) >90 (>60 ml/min/1.73 sqM); Potassium 4.3 mmol/L (3.5-5.1); Sodium 139 mmol/L (137-145)
== END | disposition home or self-care (01) ==
LOC: LABPAT 09:14
PROVIDERS: ATTEND Obstetrics & Gynecology
DX: Z01.812 Encounter for preprocedural laboratory examination (principal); Z01.818 Encounter for other preprocedural examination
CPT/HCPCS: 36415; 80048; 85025

== ENCOUNTER 2021-02-10 07:29 | Observation (INO) | payer MEDICAID ==
[2021-02-03 18:09] VITALS: BMI 29.4
--- NOTE | 2021-02-09 17:26 | P.HPOB ---
History of Present Illness H&P Date: 02/09/21 Chief Complaint: Dysfunctional uterine bleeding: Failed NovaSure Patient is a 46-year-old female with continued bleeding and pain following NovaSure ablation. She is scheduled for a robotic-assisted laparoscopic hysterectomy with bilateral salpingectomy possible SHAHZAD and possible BSO. Risks/benefits/alternatives to this procedure were reviewed with patient in detail and all questions were answered for her prior to proceeding to the operating room. We did discuss other options including control or Lysteda as the other options clearly will not work with her history of an ablation. It is noted that the she has pain with the bleeding but at no other time and that she has also successfully lost 25 pounds last 8 months. On physical exam vital signs are stable and afebrile. Heart regular, lungs clear, extremities without pain. Abdomen soft and nontender. Bowel sounds are noted. Pelvic exam is otherwise unremarkable. Assessment dysfunctional uterine bleeding: Failed NovaSure. Plan robotic-assisted laparoscopic hysterectomy with bilateral salpingectomy and possible SHAHZAD BSO Past Medical History Past Medical History: Hypertension Additional Past Medical History / Comment(s): Heavy menses w/ pain History of Any Multi-Drug Resistant Organisms: None Reported Past Surgical History: Breast Surgery, Section, Cholecystectomy, Tubal Ligation, Uterine Ablation Additional Past Surgical History / Comment(s): benign rt breast lumpectomy, thyroid scope Past Anesthesia/Blood Transfusion Reactions: No Reported Reaction Smoking Status: Never smoker - Past Family History Sister(s) Family Medical History: Cancer Additional Family Medical History / Comment(s): lung,kidney Mother Family Medical History: Cancer, Thyroid Disorder Additional Family Medical History / Comment(s): uterine cancer Medications and Allergies Home Medications Medication Instructions Recorded Confirmed Type Ibuprofen [Motrin Ib] 400 - 600 mg PO Q8H PRN 02/03/21 02/03/21 History Allergies Allergy/AdvReac Type Severity Reaction Status Date / Time No Known Allergies Allergy Verified 02/03/21 17:51 Exam Osteopathic Statement: *. No significant issues noted on an osteopathic structural exam other than those noted in the History and Physical/Consult. - OBG Physical Exam Breast: both: normal (no masses) Abdomen: bowel sounds normal, no diffuse tenderness, no bruit present, no guarding noted, no hepatomegaly, no splenomegaly, no mass Vulva: both: normal Vagina: normal moisture, no discharge Cervix: no lesion, no discharge Uterus: normal size, normal contour Adnexa: both: normal Anus/Rectum: normal perianal skin, no rectal mass, no hemorrhoids, heme negative
[~2021-02-10 07:29] MED LIST changes: -DEXAMETHASONE SOD PHOSPHATE 10 MG/ML 1 ML VIAL IV ONE; +DEXAMETHASONE SOD PHOSPHATE 4 MG/ML 1 ML VIAL IV ONE; +HYDROmorphone 0.5 MG/0.5 ML SYRINGE IVP PRN; -LACTATED RINGERS 1,000 ML IV SCH; -LIDOCAINE 1% 20 ML VIAL (10MG/ML) FOR IV START INTRADERMA PRN; -MIDAZOLAM 2 MG/2 ML VIAL IV PRN; -Pre Op ABX Message 1 EACH MISC MISCELLANE ONE; -fentaNYL (PF) 50 MCG/ML 2 ML AMP IV PRN
[2021-02-10] MEDS: LACTATED RINGERS 1,000 ML IV SCH (08:19)
[2021-02-10] MEDS ORDERED: LIDOCAINE 1% INJ 10MG/ML (20 ML MDV) ONE (09:43)
[2021-02-10] MEDS ORDERED: KETOROLAC 15 MG/ML 1 ML VIAL ONE (09:43)
[2021-02-10] MEDS ORDERED: GLYCOPYRROLATE 0.2 MG/ML 2 ML VIAL ONE (09:43)
[2021-02-10] MEDS ORDERED: SUCCINYLCHOLINE CHLORIDE 100 MG/5 ML SYR IV ONE (09:43)
[2021-02-10] MEDS ORDERED: MIDAZOLAM 2 MG/2 ML VIAL ONE (09:43)
[2021-02-10] MEDS ORDERED: ROCURONIUM 10 MG/ML (5 ML VIAL) IV ONE (09:43)
[2021-02-10] MEDS ORDERED: NEOSTIGMINE 1 MG/ML 10 ML VIAL ONE (09:43)
[2021-02-10] MEDS ORDERED: LIDOCAINE 0.5% (PF) 5 MG/ML (50 ML SDV) SQ ONE (09:43)
[2021-02-10] MEDS ORDERED: PROPOFOL 10 MG/ML 20 ML VIAL IV ONE (09:43)
[2021-02-10] MEDS ORDERED: fentaNYL (PF) 50 MCG/ML 2 ML AMP ONE (09:43)
[2021-02-10] MEDS ORDERED: LACTATED RINGERS 1,000 ML IV ONE (11:14)
[2021-02-10] MEDS ORDERED: ONDANSETRON 4 MG/2 ML VIAL IVP PRN ×2 (11:16→17:47)
[2021-02-10] MEDS ORDERED: SIMETHICONE 80 MG CHEWABLE PO PRN (11:16)
[2021-02-10] MEDS ORDERED: ACETAMINOPHEN TAB 325 MG TAB PO PRN (11:18)
--- NOTE | 2021-02-10 11:23 | P.OP ---
Date of Procedure: 02/10/21 Preoperative Diagnosis: Menorrhagia: Failed NovaSure Postoperative Diagnosis: Same with fibroid uterus Procedure(s) Performed: Robotic-assisted laparoscopic hysterectomy with bilateral salpingectomy Anesthesia: MISBAH Surgeon: Ranjan Trujillo Bird Sitter #1: Giselle Dudley Estimated Blood Loss (ml): 150 IV fluids (ml): 900 Urine output (ml): 550 Pathology: other ('s uterus, cervix, fallopian tubes) Condition: stable Disposition: floor Operative Findings: Fibroid uterus noted. Filshie clip removed that was noted in posterior cul-de-sac Description of Procedure: Patient was taken to the operating suite where a general anesthetic was found be adequate. She was prepped and draped in the normal sterile fashion and placed in dorsal lithotomy position. Initially a weighted speculum was inserted in the vagina and anterior lip of cervix identified and grasped with single-tooth tenaculum. Cervix then dilated and uterus was sounded to 8 cm. Suspect uterus is bigger than that but with history of ablation could not penetrate any further. Cup size was 3.5 cm with stitches placed at 3 and 9 on the cervix a Heather manipulator was inserted without difficulty and Scott catheter was placed. Gloves were then changed and attention was turned to the abdominal portion procedure where 3 mL of quarter percent Marcaine was injected 2 cm above the umbilicus. Which was approximately 10 cm both maximal Ascent of the uterus. Through a 5 mm skin incision a port and sleeve were inserted under direct visualization with an optical trocar and sleeve. Once completely placed gas was allowed to insufflate the abdomen. Left and right robotic ports were then placed 11 cm lateral to the umbilicus under direct visualization through 8 mm skin incisions. Fourth port and sleeve was then inserted between the left lateral and the medial port 1 cm size. Camera port was then exchanged for robotic port and the robot was brought in and docked. Once fully docked a scissor was placed in the one arm and a [place] grasper in 3 arm and at this point I broke scrub and went to the console. Uterus was then elevated and tipped to the right side and the left fallopian tube was identified the m esosalpinx tissues cauterized and the tissue was transected and tube was removed. Utero-ovarian layer was then identified cauterized and transected. Mesosalpinx tissues surrounding was cauterized and transected round ligament was then cauterized and transected and anterior posterior leafs of the broad ligament were developed. The lateral vascularity of the uterus was then cauterized and transected down to layer of the bladder flap. Bladder flap was then undermined and entered with [place] grasper and carried across face the uterus and out of the operative field. Once this was completed right-sided uterus was developed in a similar fashion. At this point balloon was blown up in the Heather manipulator and an anterior colpotomy was made. Following a counterclockwise fashion cheating head when necessary to maintain hemostasis the cup was followed around the scissor and cautery. Once 3 and 60 was that the uterus was brought down into the vagina to maintain pneumoperitoneum. Pedicles were then cauterized as needed to maintain and obtain excellent hemostasis. Once this was obtained incidents were exchanged for a make suture cut and a cardia grasper and 2 OB lock suture was used to reapproximate the vaginal cuff. Once this was completed pelvis suction irrigated. No bleeding is noted and therefore incidents were removed and gas was allowed to expel from the abdomen. A Filshie clip was incidentally noted and removed at this time. Once gas allowed to expel from the abdomen 5 deep breaths were provided. At this point I did re-scrub and do a cystoscopy with excellent flow noted from both ureteral jets and Dr. Dudley close the incision subcuticular. Sponge, lap, needle counts were all correct 2. Scott catheter was placed. Patient tolerated surgery very well and was taken to the recovery room in stable and satisfactory condition.
[2021-02-10] MEDS: KETOROLAC 15 MG/ML 1 ML VIAL IVP PRN (18:50)
[2021-02-10] MEDS: METOCLOPRAMIDE 5 MG/ML 2 ML VIAL IVP SCH (18:50)
[2021-02-10] MEDS ORDERED: SENNOSIDES-DOCUSATE SODIUM 1 EACH TAB PO SCH (21:00)
[2021-02-11] MEDS: METOCLOPRAMIDE 5 MG/ML 2 ML VIAL IVP SCH ×2 (00:55→06:18)
[2021-02-11] MEDS: KETOROLAC 15 MG/ML 1 ML VIAL IVP PRN ×2 (00:55→06:18)
[2021-02-11 01:31] VITALS: RESP 16
[2021-02-11] MEDS: LACTATED RINGERS 1,000 ML IV SCH (04:49)
[2021-02-11 07:26] LABS: Basophils % (A) 0 %; Eosinophils # (A) 0.1 k/uL (0-0.7); Eosinophils % (A) 0 %; HCT 41.7 % (34.0-46.0); HGB 13.3 gm/dL (11.4-16.0); Lymphocytes # (A) 2.2 k/uL (1.0-4.8); Lymphocytes % (A) 14 %; MCH 29.4 pg (25.0-35.0); MCV 91.8 fL (80.0-100.0); Mean Platelet Volume 7.3; Monocytes # (A) 0.8 k/uL (0-1.0); Monocytes % (A) 5 %; Neutrophils % (A) 80 %; Platelet Count 372 k/uL (150-450); RBC 4.54 m/uL (3.80-5.40); RDW 13.1 % (11.5-15.5); WBC 16.2 k/uL (3.8-10.6)
--- NOTE | 2021-02-11 07:50 | P.DS ---
Providers Date of admission: 02/11/21 01:08 Expected date of discharge: 02/11/21 Attending physician: Ranjan Trujillo Primary care physician: Madeline Ware [facility] Course: Patient is doing very well post op day 1 from a laparoscopic hysterectomy. She is ambulating, voiding and tolerating her diet. She voices no complaints and her pain control is excellent. She is going to be discharged home on Motrin 600 only. She declines narcotic pain relievers. Her vital signs are otherwise stable and afebrile. Heart regular, lungs clear, extremities without pain. Abdomen is soft she is passing flatus and her incisions are clean dry and intac t. Assessment postop day 1. Plan follow up with me in 1 week. Patient Condition at Discharge: Good Plan - Discharge Summary Discharge Rx Participant: Yes New Discharge Prescriptions: New Ibuprofen [Motrin] 600 mg PO Q6HR PRN #30 tab PRN Reason: Pain No Action Ibuprofen [Motrin Ib] 400 - 600 mg PO Q8H PRN PRN Reason: Pain Discharge Medication List Ibuprofen [Motrin Ib] 400 - 600 mg PO Q8H PRN 02/03/21 [History] Ibuprofen [Motrin] 600 mg PO Q6HR PRN #30 tab 02/11/21 [Rx] Follow up Appointment(s)/Referral(s): Ranjan Trujillo DO [Doctor of Osteopathic Medicine] - 1 Week Activity/Diet/Wound Care/Special Instructions: No heavy lifting, limit stairs and driving, and pelvic rest. If any high temperatures, heavy bleeding, or severe pain call my office
[2021-02-11 08:29] VITALS: BP 137/78; PULSE 88; TEMP 99.1
== END 2021-02-11 09:00 | disposition home or self-care (01) ==
LOC: OR 07:29 → 4FBP 12:28 → OR 02-11 01:08
PROVIDERS: ADMIT Obstetrics & Gynecology; ATTEND Obstetrics & Gynecology
DX: N80.0 Endometriosis of uterus (principal); D25.1 Intramural leiomyoma of uterus; N93.8 Other specified abnormal uterine and vaginal bleeding; N92.0 Excessive and frequent menstruation with regular cycle; N88.8 Other specified noninflammatory disorders of cervix uteri; N72 Inflammatory disease of cervix uteri; T83.428A Displacement of other prosthetic devices, implants and grafts of genital tract, initial encounter; I10 Essential (primary) hypertension; Z90.49 Acquired absence of other specified parts of digestive tract; Z98.891 History of uterine scar from previous surgery; Z98.51 Tubal ligation status; Z98.890 Other specified postprocedural states; Z80.49 Family history of malignant neoplasm of other genital organs; Z80.1 Family history of malignant neoplasm of trachea, bronchus and lung; Z80.51 Family history of malignant neoplasm of kidney; Z83.49 Family history of other endocrine, nutritional and metabolic diseases
CPT/HCPCS: 58552; S2900; 81025; 85025; 86850; 86900; 86901; 88307

== ENCOUNTER → 2021-04-14 | Outpatient (CLI) | payer MEDICAID ==
--- NOTE | 2021-04-18 10:08 | MM ---
Reason for exam: screening (asymptomatic). Last mammogram was performed 1 year and 8 months ago. History: Family history of breast cancer in maternal grandmother at age 60 and breast cancer in maternal aunt at age 60. Benign excisional biopsy of the right breast, January 06, 2011. Took hormonal contraceptives for 17 years beginning at age 18. Physical Findings: A clinical breast exam by your physician is recommended on an annual basis and results should be correlated with mammographic findings. MG 3D Screening Mammo W/Cad Bilateral CC and MLO view(s) were taken. Prior study comparison: August 19, 2019, bilateral MG screening mammo w CAD. May 24, 2017, bilateral MG screening mammo w CAD. The breast tissue is heterogeneously dense. This may lower the sensitivity of mammography. There is chronic nodularity in the left breast. Round 4.2cm mass subareolar left breast versus 3.0cm previously. Superior anterior left MLO asymmetric density is more defined. ASSESSMENT: Incomplete: need additional imaging evaluation, BI-RAD 0 RECOMMENDATION: Special view mammogram of the left breast. (3D) Ultrasound of the left breast. (10-3 o'clock) [facility] will attempt to contact patient to return for supplemental views and ultrasound.
== END | disposition home or self-care (01) ==
LOC: RADMAMWWP 08:23
PROVIDERS: ATTEND Obstetrics & Gynecology
DX: Z12.31 Encounter for screening mammogram for malignant neoplasm of breast (principal)
CPT/HCPCS: 77063; 77067

== ENCOUNTER → 2021-04-26 | Outpatient (CLI) | payer MEDICAID ==
--- NOTE | 2021-04-26 14:51 | USB ---
Reason for exam: additional evaluation requested from abnormal screening. History: Family history of breast cancer in maternal grandmother at age 60 and breast cancer in maternal aunt at age 60. Benign excisional biopsy of the right breast, January 06, 2011. Took hormonal contraceptives for 17 years beginning at age 18. US Breast Workup Limited LT Left limited breast ultrasound including focal area of concern, retroareolar and axilla demonstrates a 3.5 x 1.5 x 3.2cm oval, cystic lesion at retroareolar BB, simple cyst. These results were verbally communicated with the patient and result sheet given to the patient on 04/26/21. ASSESSMENT: Benign, BI-RAD 2 RECOMMENDATION: Return to routine screening mammogram schedule for both breasts.
--- NOTE | 2021-04-26 14:54 | MM ---
Reason for exam: additional evaluation requested from abnormal screening. Last mammogram was performed less than 1 month ago. History: Family history of breast cancer in maternal grandmother at age 60 and breast cancer in maternal aunt at age 60. Benign excisional biopsy of the right breast, January 06, 2011. Took hormonal contraceptives for 17 years beginning at age 18. Physical Findings: Nurse did not find any significant physical abnormalities on exam. MG 3D Work Up W/Cad LT CC and MLO view(s) were taken of the left breast. Prior study comparison: April 14, 2021, bilateral MG 3d screening mammo w/cad. August 19, 2019, bilateral MG screening mammo w CAD. The breast tissue is heterogeneously dense. This may lower the sensitivity of mammography. There is chronic nodularity in the left axilla. No distinct anterior lesion persists. These results were verbally communicated with the patient and result sheet given to the patient on 04/26/21. ASSESSMENT: Incomplete: need additional imaging evaluation, BI-RAD 0 RECOMMENDATION: Ultrasound of the left breast. (enlarging subareolar lesion)
== END | disposition home or self-care (01) ==
LOC: RADMAMWWP 13:31
PROVIDERS: ATTEND Obstetrics & Gynecology
DX: R92.8 Other abnormal and inconclusive findings on diagnostic imaging of breast (principal)
CPT/HCPCS: 77061; 77065

== ENCOUNTER → 2022-09-25 | Outpatient (CLI) | payer BC ==
--- NOTE | 2022-09-26 09:48 | MM ---
Reason for Exam: Screening (asymptomatic). Last mammogram was performed 1 year(s) and 6 month(s) ago. Patient History: Menarche at age 12. First Full-Term at age 28. Hysterectomy at age 45. Hormonal Contraceptives, starting at age 18 for 17 years. 01/06/2011, Benign Excisional Biopsy on the right side. Maternal grandmother had breast cancer, age 60. Maternal aunt had breast cancer, age 60. Risk Values: Nora 5 year model risk: 1.4%. NCI Lifetime model risk: 12.3%. Prior Study Comparison: 08/19/2019 Bilateral Screening Mammogram, [facility]. 04/14/2021 Bilateral Screening Mammogram, [facility]. 04/26/2021 Left Diagnostic Mammogram, [facility]. Tissue Density: The breast tissue is heterogeneously dense. This may lower the sensitivity of mammography. Findings: Analyzed By CAD. Stable left breast masses. There is no suspicious group of microcalcifications or new suspicious mass in either breast. Overall Assessment: Benign, BI-RAD 2 Management: Screening Mammogram of both breasts in 1 year. A clinical breast exam by your physician is recommended on an annual basis and results should be correlated with mammographic findings. [facility] will attempt to contact patient to return for supplemental views and ultrasound if indicated. Electronically signed and approved by: Surjit Sy DO
== END | disposition home or self-care (01) ==
LOC: RADMAMWWP 07:40
PROVIDERS: ATTEND Surgery
DX: Z12.31 Encounter for screening mammogram for malignant neoplasm of breast (principal); Z80.3 Family history of malignant neoplasm of breast
CPT/HCPCS: 77063; 77067

== ENCOUNTER → 2022-09-28 | Outpatient (CLI) | payer BC ==
[2022-09-28 14:37] VITALS: BP 153/99; PULSE 62; RESP 17; TEMP 98.4
--- NOTE | 2022-09-28 14:52 | P.PN ---
Subjective Progress Note Date: 09/28/22 Principal diagnosis: fibrocystic breast changes Karthik is a 47 year old white female seen in consultation on 09-22-[address] Ware regarding an ultrasound abnormality behind the left nipople aerolar complex. She had a bilateral mammogram on 04-18-21 which led to a left breast di agnostic mammogram and ultrasound. This showed a cystic lesion and was considered Benign BIRAD 2. The patient does not feel any new lumps masses or nodules of concern in either breast. She has had cysts drained in the past. She states that at times she feels some twinging behind the left nipple areolar complex and wonders if this should be drained. She did have a right breast cyst removed approximately 10 years ago this was benign. She has not had any recent trauma or infection in the breast. She is not complaining of any nipple discharge or skin changes. The cyst come right before her period. She had a hysterectomy at 45, this was done for bleeding they left her ovaries. Bilateral mammogram on 09-25-22 BIRAD 2 Not complaining of any new lumps masses or nodules of concern in either breast. Nora 5 year risk: 1.4% lifetime risk: 12.3% Caffeine: 1 cup/day nicotine: none chocolate: weekly BCP: 20 years stopped 6 years ago, had a tubaligation hormones: none Family History: Sister: kidney cancer, metastatic to the lungs and tied at 25 mother: uterine cancer maternal aunt: 3 had breast cancer no genetic testing done Hormonal History: menarche: 15 , breast fed: no, age at : 28 hysterectomy at 45, no cancer Surgical history: uterine ablation Hysterectomy Cholecystectomy Right breast cyst Medical History: none Social History: nicotine: none alcohol: occasional drugs: none - Constitutional Constitutional: Denies chills, Denies fever - EENT Eyes: denies blurred vision, denies pain Ears: deny: decreased hearing, tinnitus Ears, nose, mouth and throat: Denies headache, Denies sore throat - Breasts Breasts: bilateral: as per HPI - Cardiovascular Cardiovascular: Denies chest pain, Denies shortness of breath - Respiratory Respiratory: Denies cough - Gastrointestinal Gastrointestinal: Denies abdominal pain, Denies diarrhea, Denies nausea, Denies vomiting - Genitourinary (Female) Genitourinary: Denies dysuria, Denies hematuria - Menstruation Menstruation: Reports post hysterectomy - Musculoskeletal Musculoskeletal: Denies myalgias - Integumentary Integumentary: Denies pruritus, Denies rash - Neurological Neurological: Denies numbness, Denies weakness - Psychiatric Psychiatric: Denies anxiety, Denies depression - Endocrine Endocrine: Denies fatigue, Denies weight change - Hematologic/Lymphatic Comment: none - Allergic/Immunologic Allergic/Immunologic: Reports as per HPI Past Medical History Past Medical History: Hypertension Additional Past Medical History / Comment(s): heavy periods History of Any Multi-Drug Resistant Organisms: None Reported Past Surgical History: Breast Surgery, Section, Cholecystectomy, Tubal Ligation Additional Past Surgical History / Comment(s): benign rt breast lumpectomy, thyroid scope Past Anesthesia/Blood Transfusion Reactions: No Reported Reaction Past Psychological History: No Psychological Hx Reported Smoking Status: Smoker, current status unknown Past Alcohol Use History: Occasional Past Drug Use History: None Reported - Past Family History Sister(s) Family Medical History: Cancer Additional Family Medical History / Comment(s): lung,kidney Mother Family Medical History: Cancer, Thyroid Disorder Additional Family Medical History / Comment(s): uterine cancer Medications and Allergies Home Medications Medication Instructions Recorded Confirmed Type No Known Home Medications 09/22/21 09/22/21 History Allergies Allergy/AdvReac Type Severity Reaction Status Date / Time No Known Allergies Allergy Verified 09/22/21 14:10 Objective - Vital Signs Vital signs: Vital Signs Temp 98.4 F 09/28/22 14:34 Pulse 62 09/28/22 14:34 Resp 17 09/28/22 14:34 BP 153/99 09/28/22 14:34 Pulse Ox 99 09/28/22 14:34 FiO2 Intake & Output 09/27/22 09/28/22 09/28/22 18:59 06:59 18:59 Weight 86.183 kg - Constitutional General appearance: Present: cooperative - EENT Eyes: Present: EOMI ENT: Present: hearing grossly normal - Neck Neck: Present: normal ROM - Respiratory Respiratory: bilateral: CTA - Cardiovascular Rhythm: regular Heart sounds: normal: S1, S2 - Gastrointestinal General gastrointestinal: Present: soft - Integumentary Integumentary: Present: normal turgor - Musculoskeletal Musculoskeletal: Present: gait normal - Psychiatric Psychiatric: Present: A&O x's 3, appropriate affect, intact judgment & insight - Additional findings Additional findings: Breast Exam: BRA: 36DD inspection: Bilateral grade 2/3 ptosis, bladder a fungal infection under the breast Palpation: Right breast: Multi-positional exam fibrocystic changes no discrete dominant masses or nodules of concern Right axilla: No adenopathy of concern Left breast: Multi-positional exam fibrocystic changes no discrete dominant masses or nodules of concern, particularly attention to the retroareolar area did not reveal any lesions of concern Left axilla: No adenopathy of concern Assessment and Plan Assessment: Impression: Bilateral fibrocystic breast change Nothing which would warrant interventional biopsy or aspiration at this time Strong family history of cancer Plan: Bilateral mammogram in 1 year Patient to follow up sooner for questions or concerns Patient opted not to have genetic testing done CC: Dr. Ware Additional CC's: Madeline Ware
== END ==
LOC: WWCWWP 13:32
PROVIDERS: ATTEND Surgery
DX: N60.11 Diffuse cystic mastopathy of right breast (principal); N60.12 Diffuse cystic mastopathy of left breast; R92.8 Other abnormal and inconclusive findings on diagnostic imaging of breast; F17.200 Nicotine dependence, unspecified, uncomplicated; I10 Essential (primary) hypertension; Z80.3 Family history of malignant neoplasm of breast; Z83.49 Family history of other endocrine, nutritional and metabolic diseases; Z90.49 Acquired absence of other specified parts of digestive tract; Z80.51 Family history of malignant neoplasm of kidney; Z80.1 Family history of malignant neoplasm of trachea, bronchus and lung

== ENCOUNTER → 2023-10-01 | Outpatient (CLI) | payer BC ==
--- NOTE | 2023-10-02 18:51 | MM ---
Reason for Exam: Screening (asymptomatic). Last screening mammogram was performed 12 month(s) ago. Patient History: Menarche at age 12. First Full-Term at age 28. Hysterectomy at age 45. Hormonal Contraceptives, starting at age 18 for 17 years. 01/06/2011, Benign Excisional Biopsy on the right side. Maternal grandmother had breast cancer, age 60. Maternal aunt had breast cancer, age 60. Risk Values: Nora 5 year model risk: 1.3%. NCI Lifetime model risk: 12.1%. Prior Study Comparison: 04/14/2021 Bilateral Screening Mammogram, [facility]. 04/26/2021 Left Diagnostic Mammogram, [facility]. 09/25/2022 Bilateral MG 3D screening mammo w/cad, [facility]. Tissue Density: There are scattered areas of fibroglandular density. Findings: Analyzed By CAD. Chronic nodularity on the left. Unchanged bilateral areas of asymmetric density. There is no suspicious group of microcalcifications or new suspicious mass in either breast. Overall Assessment: Benign, BI-RAD 2 Management: Screening Mammogram of both breasts in 1 year. . Patient should continue monthly self-breast exams. A clinical breast exam by your physician is recommended on an annual basis. This exam should not preclude additional follow-up of suspicious palpable abnormalities. Note on Nora scores and lifetime risk: 1. A Nora score greater than 3% is considered moderate risk. If this is the case, consider specialist referral to assess eligibility for a risk reducing agent. 2. If overall lifetime risk for the development of breast cancer is 20% or higher, the patient may qualify for future screening with alternating mammogram and breast MRI. Electronically signed and approved by: Lara Turner M.D. Radiologist
== END | disposition home or self-care (01) ==
LOC: RADMAMWWP 12:37
PROVIDERS: ATTEND Surgery
DX: Z12.31 Encounter for screening mammogram for malignant neoplasm of breast (principal); Z80.3 Family history of malignant neoplasm of breast
CPT/HCPCS: 77063; 77067

== ENCOUNTER → 2023-10-04 | Outpatient (CLI) | payer BC ==
[2023-10-04 12:11] VITALS: BP 174/104; PULSE 51; RESP 16; TEMP 98.1
--- NOTE | 2023-10-04 12:18 | P.PN ---
Subjective Progress Note Date: 10/04/23 Principal diagnosis: fibrocystic breast disease 09/28/22 Principal diagnosis: fibrocystic breast changes Karthik is a 47 year old white female seen in consultation on 09-22-[address] Ware regarding an ultrasound abnormality behind the left nipople aerolar complex. She had a bilateral mammogram on 04-18-21 which led to a left breast diagnostic mammogram and ultrasound. This showed a cystic lesion and was considered Benign BIRAD 2. The patient does not feel any new lumps masses or nodules of concern in either breast. She has had cysts drained in the past. She states that at times she feels some twinging behind the left nipple areolar complex and wonders if this should be drained. She did have a right breast cyst removed approximately 10 years ago this was benign. She has not had any recent trauma or infection in the breast. She is not complaining of any nipple discharge or skin changes. The cyst come right before her period. She had a hysterectomy at 45, this was done for bleeding they left her ovaries. Bilateral mammogram on 09-25-22 BIRAD 2 Not complaining of any new lumps masses or nodules of concern in either breast. 10-04-23 Bilateral mammogram on 10-01-23 BIRAD 2 Of any new lumps masses or nodules of concern in either breast. She continues to have some nodularity in the left post nipple areolar complex region which has been the same for the past several years. It is intermittent in nature. Nora 5 year risk: 1.3% lifetime risk: 12.1% Caffeine: 1 cup/day nicotine: none chocolate: weekly BCP: 20 years stopped 6 years ago, had a tubaligation hormones: none Family History: Sister: kidney cancer, metastatic to the lungs and at 25 mother: uterine cancer maternal aunt: 3 had breast cancer no genetic testing done Hormonal History: menarche: 15 , breast fed: no, age at : 28 hysterectomy at 45, no cancer Surgical history: uterine ablation Hysterectomy Cholecystectomy Right breast cyst Medical History: none Social History: nicotine: none alcohol: occasional drugs: none - Constitutional Constitutional: Denies chills, Denies fever - EENT Eyes: denies blurred vision, denies pain Ears: deny: decreased hearing, tinnitus Ears, nose, mouth and throat: Denies headache, Denies sore throat - Breasts Breasts: bilateral: as per HPI - Cardiovascular Cardiovascular: Denies chest pain, Denies shortness of breath - Respiratory Respiratory: Denies cough - Gastrointestinal Gastrointestinal: Denies abdominal pain, Denies diarrhea, Denies nausea, Denies vomiting - Genitourinary (Female) Genitourinary: Denies dysuria, Denies hematuria - Menstruation Menstruation: Reports post hysterectomy - Musculoskeletal Musculoskeletal: Denies myalgias - Integumentary Integumentary: Denies pruritus, Denies rash - Neurological Neurological: Denies numbness, Denies weakness - Psychiatric Psychiatric: Denies anxiety, Denies depression - Endocrine Endocrine: Denies fatigue, Denies weight change - Hematologic/Lymphatic Comment: none - Allergic/Immunologic Allergic/Immunologic: Reports as per HPI Past Medical History Past Medical History: Hypertension Additional Past Medical History / Comment(s): heavy periods History of Any Multi-Drug Resistant Organisms: None Reported Past Surgical History: Breast Surgery, Section, Cholecystectomy, Tubal Ligation Additional Past Surgical History / Comment(s): benign rt breast lumpectomy, thyroid scope Past Anesthesia/Blood Transfusion Reactions: No Reported Reaction Past Psychological History: No Psychological Hx Reported Smoking Status: Smoker, current status unknown Past Alcohol Use History: Occasional Past Drug Use History: None Reported - Past Family History Sister(s) Family Medical History: Cancer Additional Family Medical History / Comment(s): lung,kidney Mother Family Medical History: Cancer, Thyroid Disorder Additional Family Medical History / Comment(s): uterine cancer Medications and Allergies Home Medications Medication Instructions Recorded Confirmed Type No Known Home Medications 09/22/21 09/22/21 History Allergies Allergy/AdvReac Type Severity Reaction Status Date / Time No Known Allergies Allergy Verified 09/22/21 14:10 Objective - Vital Signs Vital signs: Vital Signs Temp 98.1 F 10/04/23 11:56 Pulse 51 L 10/04/23 11:56 Resp 16 10/04/23 11:56 BP 174/104 10/04/23 11:56 Pulse Ox 100 10/04/23 11:56 FiO2 Intake & Output 10/03/23 10/04/23 10/04/23 18:59 06:59 18:59 Weight 90.718 kg - Constitutional General appearance: Present: cooperative - EENT ENT: Present: hearing grossly normal - Neck Neck: Present: normal ROM - Respiratory Respiratory: bilateral: CTA - Cardiovascular Rhythm: regular Heart sounds: normal: S1, S2 - Gastrointestinal General gastrointestinal: Present: soft - Integumentary Integumentary: Present: normal turgor - Musculoskeletal Musculoskeletal: Present: gait normal - Psychiatric Psychiatric: Present: A&O x's 3, appropriate affect, intact judgment & insight - Additional findings Additional findings: Breast Exam: BRA: 36DD inspection: Bilateral grade 2/3 ptosis, fungal infection under the breast resolved from last year Palpation: Right breast: Multi-positional exam fibrocystic changes no discrete dominant masses or nodules of concern Right axilla: No adenopathy of concern Left breast: Multi-positional exam fibrocystic changes no discrete dominant masses or nodules of concern, nodularity at the 12 o'clock position of the left breast asymmetric to that on the right side Left axilla: No adenopathy of concern Assessment and Plan Assessment: Impression: Bilateral fibrocystic breast change Nodularity in the 12 o'clock position of the left breast Strong family history of cancer bilateral mammogram 10-01-23 BIRAD 2 Plan: Bilateral mammogram in 1 year 12 o'clock position left breast FNA area of concern 12 o'clock position left breast Patient to follow up sooner for questions or concerns Patient opted not to have genetic testing done CC: Dr. Ware Additional CC's: Madeline Ware
== END ==
LOC: WWCWWP 11:39
PROVIDERS: ATTEND Surgery
DX: Z12.31 Encounter for screening mammogram for malignant neoplasm of breast (principal); N60.12 Diffuse cystic mastopathy of left breast; N60.11 Diffuse cystic mastopathy of right breast; N63.25 Unspecified lump in the left breast, overlapping quadrants; Z80.3 Family history of malignant neoplasm of breast

== ENCOUNTER → 2023-11-08 | Outpatient (CLI) | payer BC ==
--- NOTE | 2023-11-08 09:52 | USB ---
Reason for Exam: Clinical finding. Patient History: Menarche at age 12. First Full-Term at age 28. Hysterectomy at age 45. Hormonal Contraceptives, starting at age 18 for 17 years. 01/06/2011, Benign Excisional Biopsy on the right side. Maternal grandmother had breast cancer, age 60. Maternal aunt had breast cancer, age 60. Risk Values: Nora 5 year model risk: 1.3%. NCI Lifetime model risk: 12.1%. Technique: Method: Targeted. Prior Study Comparison: 04/26/2021 Left Diagnostic Mammogram, [facility]. 09/25/2022 Bilateral MG 3D screening mammo w/cad, [facility]. 10/01/2023 Bilateral MG 3D screening mammo w/cad, [facility]. Findings: The axilla of the left breast and the retroareolar of the left breast were scanned. In the subareolar left breast there is a 2.7 x 2.9 x 2.4 cm hypoechoic area. This correlates with the mammographic finding. This has multiple internal echoes and some linear stranding which may be septations. Is a simple cyst April 2021..In the subareolar left breast there is a 2.7 x 2.9 x 2.4 cm hypoechoic area. This correlates with the mammographic finding. This has multiple internal echoes and some linear stranding which may be septations. This was a simple cyst April 2021.. Overall Assessment: Probably benign, BI-RAD 3 Management: Surgical Consultation of the left breast. A clinical breast exam by your physician is recommended on an annual basis and results should be correlated with mammographic findings. This exam should not preclude additional follow-up of suspicious palpable abnormalities. Results were given to the patient verbally at the time of exam. Electronically signed and approved by: Erasmo Doran D.O. Radiologis
== END | disposition home or self-care (01) ==
LOC: RADUSWWP 09:24
PROVIDERS: ATTEND Surgery
DX: N60.02 Solitary cyst of left breast (principal); N63.25 Unspecified lump in the left breast, overlapping quadrants; Z80.3 Family history of malignant neoplasm of breast

== ENCOUNTER → 2023-11-09 | Outpatient (CLI) | payer BC ==
--- NOTE | 2023-11-09 10:35 | P.PN ---
Subjective Progress Note Date: 11/09/23 fibrocystic breast disease 09/28/22 Principal diagnosis: fibrocystic breast changes Karthik is a 47 year old white female seen in consultation on 09-22-[address] Ware regarding an ultrasound abnormality behind the left nipople aerolar complex. She had a bilateral mammogram on 04-18-21 which led to a left breast diagnostic mammogram and ultrasound. This showed a cystic lesion and was considered Benign BIRAD 2. The patient does not feel any new lumps masses or nodules of concern in either breast. She has had cysts drained in the past. She states that at times she feels some twinging behind the left nipple areolar complex and wonders if this should be drained. She did have a right breast cyst removed approximately 10 years ago this was benign. She has not had any recent trauma or infection in the breast. She is not complaining of any nipple discharge or skin changes. The cyst come right before her period. She had a hysterectomy at 45, this was done for bleeding they left her ovaries. Bilateral mammogram on 09-25-22 BIRAD 2 Not complaining of any new lumps masses or nodules of concern in either breast. 10-04-23 Bilateral mammogram on 10-01-23 BIRAD 2 Patient was not complaining of any new lumps masses or nodules of concern in either breast. She continues to have some nodularity in the left post nipple areolar complex region which has been the same for the past several years. It is intermittent in nature. Nora 5 year risk: 1.3% lifetime risk: 12.1% 11-09-23 ultrasound of the left breast done on 11-08-23; septated cystic lesion seen at the area of palpable change in the left breast Caffeine: 1 cup/day nicotine: none chocolate: weekly BCP: 20 years stopped 6 years ago, had a tubaligation hormones: none Family History: Sister: kidney cancer, metastatic to the lungs and at 25 mother: uterine cancer maternal aunt: 3 had breast cancer no genetic testing done Hormonal History: menarche: 15 , breast fed: no, age at : 28 hysterectomy at 45, no cancer Surgical history: uterine ablation Hysterectomy Cholecystectomy Right breast cyst Medical History: none Social History: nicotine: none alcohol: occasional drugs: none - Constitutional Constitutional: Denies chills, Denies fever - EENT Eyes: denies blurred vision, denies pain Ears: deny: decreased hearing, tinnitus Ears, nose, mouth and throat: Denies headache, Denies sore throat - Breasts Breasts: bilateral: as per HPI - Cardiovascular Cardiovascular: Denies chest pain, Denies shortness of breath - Respiratory Respiratory: Denies cough - Gastrointestinal Gastrointestinal: Denies abdominal pain, Denies diarrhea, Denies nausea, Denies vomiting - Genitourinary (Female) Genitourinary: Denies dysuria, Denies hematuria - Menstruation Menstruation: Reports post hysterectomy - Musculoskeletal Musculoskeletal: Denies myalgias - Integumentary Integumentary: Denies pruritus, Denies rash - Neurological Neurological: Denies numbness, Denies weakness - Psychiatric Psychiatric: Denies anxiety, Denies depression - Endocrine Endocrine: Denies fatigue, Denies weight change - Hematologic/Lymphatic Comment: none - Allergic/Immunologic Allergic/Immunologic: Reports as per HPI Past Medical History Past Medical History: Hypertension Additional Past Medical History / Comment(s): heavy periods History of Any Multi-Drug Resistant Organisms: None Reported Past Surgical History: Breast Surgery, Section, Cholecystectomy, Tubal Ligation Additional Past Surgical History / Comment(s): benign rt breast lumpectomy, thyroid scope Past Anesthesia/Blood Transfusion Reactions: No Reported Reaction Past Psychological History: No Psychological Hx Reported Smoking Status: Smoker, current status unknown Past Alcohol Use History: Occasional Past Drug Use History: None Reported - Past Family History Sister(s) Family Medical History: Cancer Additional Family Medical History / Comment(s): lung,kidney Mother Family Medical History: Cancer, Thyroid Disorder Additional Family Medical History / Comment(s): uterine cancer Medications and Allergies Home Medications Medication Instructions Recorded Confirmed Type No Known Home Medications 09/22/21 09/22/21 History Allergies Allergy/AdvReac Type Severity Reaction Status Date / Time No Known Allergies Allergy Verified 09/22/21 14:10 Objective - Vital Signs Vital signs: Vital Signs Temp 98.3 F 11/09/23 10:14 Pulse 55 L 11/09/23 10:14 Resp 17 11/09/23 10:14 BP 137/98 11/09/23 10:14 Pulse Ox 97 11/09/23 10:14 FiO2 Intake & Output 11/08/23 11/09/23 11/09/23 18:59 06:59 18:59 Weight 90.718 kg - Constitutional General appearance: Present: cooperative - EENT Eyes: Present: EOMI ENT: Present: hearing grossly normal - Neck Neck: Present: normal ROM - Respiratory Respiratory: bilateral: CTA - Cardiovascular Heart sounds: normal: S1, S2 - Integumentary Integumentary: Present: normal turgor - Musculoskeletal Musculoskeletal: Present: gait normal - Psychiatric Psychiatric: Present: A&O x's 3, appropriate affect, intact judgment & insight - Additional findings Additional findings: Breast Exam: BRA: 36DD inspection: Bilateral grade 2/3 ptosis, fungal infection under the breast resolved from last year Palpation: Right breast: Multi-positional exam fibrocystic changes no discrete dominant ma sses or nodules of concern Right axilla: No adenopathy of concern Left breast: Multi-positional exam fibrocystic changes no discrete dominant masses or nodules of concern, nodularity at the 12 o'clock position of the left breast asymmetric to that on the right side; the area appears to be approximately 3 cm in size Left axilla: No adenopathy of concern Assessment and Plan Assessment: Impression: Change left breast 12 o'clock position periareolar region Ultrasound from 11-08-2023 septated cystic lesion at this site Plan: FNA of area of concern at the 12:00 area of the left breast Patient will follow-up in 2 weeks for results of the FNA Following informed consent and FNA is performed of the area of concern in the left breast CC: Dr. Ware
[2023-11-09 11:01] VITALS: BP 137/98; PULSE 55; RESP 17; TEMP 98.3
== END ==
LOC: WWCWWP 09:23
PROVIDERS: ATTEND Surgery
DX: R92.8 Other abnormal and inconclusive findings on diagnostic imaging of breast (principal); N60.11 Diffuse cystic mastopathy of right breast; N60.12 Diffuse cystic mastopathy of left breast; F17.200 Nicotine dependence, unspecified, uncomplicated; Z90.710 Acquired absence of both cervix and uterus; Z80.3 Family history of malignant neoplasm of breast

== ENCOUNTER → 2023-11-28 | Outpatient (CLI) | payer BC ==
[2023-11-28 12:48] VITALS: BP 143/89; PULSE 62; RESP 16; TEMP 97.9
--- NOTE | 2023-11-28 13:04 | P.PN ---
Subjective Progress Note Date: 11/28/23 09/28/22 Principal diagnosis: fibrocystic breast changes Karthik is a 47 year old white female seen in consultation on 09-22-[address] Ware regarding an ultrasound abnormality behind the left nipople aerolar complex. She had a bilateral mammogram on 04-18-21 which led to a left breast diagnostic mammogram and ultrasound. This showed a cystic lesion and was considered Benign BIRAD 2. The patient does not feel any new lumps masses or nodules of concern in either breast. She has had cysts drained in the past. She states that at times she feels some twinging behind the left nipple areolar complex and wonders if this should be drained. She did have a right breast cyst removed approximately 10 years ago this was benign. She has not had any recent trauma or infection in the breast. She is not complaining of any nipple discharge or skin changes. The cyst come right bef ore her period. She had a hysterectomy at 45, this was done for bleeding they left her ovaries. Bilateral mammogram on 09-25-22 BIRAD 2 Not complaining of any new lumps masses or nodules of concern in either breast. 10-04-23 Bilateral mammogram on 10-01-23 BIRAD 2 Patient was not complaining of any new lumps masses or nodules of concern in either breast. She continues to have some nodularity in the left post nipple areolar complex region which has been the same for the past several years. It is intermittent in nature. Nora 5 year risk: 1.3% lifetime risk: 12.1% 11-09-23 ultrasound of the left breast done on 11-08-23; septated cystic lesion seen at the area of palpable change in the left breast 11-28-23 FNA of area of concern 12 oclock left breast done on 11-09-23 hypocellular and fragments of adipose tissue and non-diagnostic Caffeine: 1 cup/day nicotine: none chocolate: weekly BCP: 20 years stopped 6 years ago, had a tubaligation hormones: none Family History: Sister: kidney cancer, metastatic to the lungs and at 25 mother: uterine cancer maternal aunt: 3 had breast cancer no genetic testing done Hormonal History: menarche: 15 , breast fed: no, age at : 28 hysterectomy at 45, no cancer Surgical history: uterine ablation Hysterectomy Cholecystectomy Right breast cyst Medical History: none Social History: nicotine: none alcohol: occasional drugs: none - Constitutional Constitutional: Denies chills, Denies fever - EENT Eyes: denies blurred vision, denies pain Ears: deny: decreased hearing, tinnitus Ears, nose, mouth and throat: Denies headache, Denies sore throat - Breasts Breasts: bilateral: as per HPI - Cardiovascular Cardiovascular: Denies chest pain, Denies shortness of breath - Respiratory Respiratory: Denies cough - Gastrointestinal Gastrointestinal: Denies abdominal pain, Denies diarrhea, Denies nausea, Denies vomiting - Genitourinary (Female) Genitourinary: Denies dysuria, Denies hematuria - Menstruation Menstruation: Reports post hysterectomy - Musculoskeletal Musculoskeletal: Denies myalgias - Integumentary Integumentary: Denies pruritus, Denies rash - Neurological Neurological: Denies numbness, Denies weakness - Psychiatric Psychiatric: Denies anxiety, Denies depression - Endocrine Endocrine: Denies fatigue, Denies weight change - Hematologic/Lymphatic Comment: none - Allergic/Immunologic Allergic/Immunologic: Reports as per HPI Past Medical History Past Medical History: Hypertension Additional Past Medical History / Comment(s): heavy periods History of Any Multi-Drug Resistant Organisms: None Reported Past Surgical History: Breast Surgery, Section, Cholecystectomy, Tubal Ligation Additional Past Surgical History / Comment(s): benign rt breast lumpectomy, thyroid scope Past Anesthesia/Blood Transfusion Reactions: No Reported Reaction Past Psychological History: No Psychological Hx Reported Smoking Status: Smoker, current status unknown Past Alcohol Use History: Occasional Past Drug Use History: None Reported - Past Family History Sister(s) Family Medical History: Cancer Additional Family Medical History / Comment(s): lung,kidney Mother Family Medical History: Cancer, Thyroid Disorder Additional Family Medical History / Comment(s): uterine cancer Medications and Allergies Home Medications Medication Instructions Recorded Confirmed Type No Known Home Medications 09/22/21 09/22/21 History Allergies Allergy/AdvReac Type Severity Reaction Status Date / Time No Known Allergies Allergy Verified 09/22/21 14:10 Objective - Vital Signs Vital signs: Vital Signs Temp 97.9 F 11/28/23 12:46 Pulse 62 11/28/23 12:46 Resp 16 11/28/23 12:46 BP 143/89 11/28/23 12:46 Pulse Ox 97 11/28/23 12:46 FiO2 Intake & Output 11/27/23 11/28/23 11/28/23 18:59 06:59 18:59 Weight 90.718 kg - Constitutional General appearance: Present: cooperative - EENT Eyes: Present: EOMI ENT: Present: hearing grossly normal - Neck Neck: Present: normal ROM - Respiratory Respiratory: bilateral: CTA - Cardiovascular Heart sounds: normal: S1, S2 - Integumentary Integumentary: Present: normal turgor - Musculoskeletal Musculoskeletal: Present: gait normal - Psychiatric Psychiatric: Present: A&O x's 3, appropriate affect, intact judgment & insight - Additional findings Additional findings: Breast Exam: BRA: 36DD inspection: Bilateral grade 2/3 ptosis, fungal infection under the breast res olved from last year Palpation: Right breast: Multi-positional exam fibrocystic changes no discrete dominant masses or nodules of concern Right axilla: No adenopathy of concern Left breast: Multi-positional exam fibrocystic changes no discrete dominant masses or nodules of concern, nodularity at the 12 o'clock position of the left breast asymmetric to that on the right side; the area appears to be approximately 3 cm in size Left axilla: No adenopathy of concern Assessment and Plan Assessment: Impression: Change left breast 12 o'clock position periareolar region Ultrasound from 11-08-2023 septated cystic lesion at this site FNA of area of concern at the 12:00 area of the left breast/ nondiagnostic Plan: Surgical resection of the palpable mass left breast 12:00 periareolar region, possible oncoplastic tissue transfer Consent the procedure discussed with the patient. Risk include but are not limited to bleeding, infection, reaction to the anesthetic. The patient understands and wishes to proceed. CC: Dr. Ware
== END ==
LOC: WWCWWP 12:17
PROVIDERS: ATTEND Surgery
DX: N60.12 Diffuse cystic mastopathy of left breast (principal); N63.25 Unspecified lump in the left breast, overlapping quadrants; F17.200 Nicotine dependence, unspecified, uncomplicated; Z80.3 Family history of malignant neoplasm of breast

== ENCOUNTER 2023-12-25 07:26 | Day surgery (SDC) | payer BC ==
[~2023-12-25 07:26] MED LIST changes: -DEXAMETHASONE SOD PHOSPHATE 4 MG/ML 1 ML VIAL IV ONE; -HYDROmorphone 0.5 MG/0.5 ML SYRINGE IVP PRN; -ONDANSETRON 4 MG/2 ML VIAL IVP ONE; +Pre Op ABX Message 1 EACH MISC MISCELLANE ONE; +SCOPOLAMINE 1 MG/72 HR PATCH TRANSDERM ONE; +fentaNYL (PF) 50 MCG/ML 2 ML AMP IV PRN
[2023-12-25] MEDS: LACTATED RINGERS 1,000 ML IV SCH (07:53)
[2023-12-25] MEDS: IV FLUID CONTINUATION 1,000 ML IV ONE (07:54)
[2023-12-25] MEDS: DEXAMETHASONE SOD PHOSPHATE 4 MG/ML 1 ML VIAL IV ONE (07:58)
[2023-12-25] MEDS: ACETAMINOPHEN TAB 500 MG TAB PO PRN (07:58)
[2023-12-25] MEDS: MIDAZOLAM 2 MG/2 ML VIAL IV PRN (07:59)
[2023-12-25] MEDS: HEPARIN SODIUM,PORCINE 5,000 UNIT/ML 1 ML VIAL SQ PRN (07:59)
[2023-12-25] MEDS: ONDANSETRON 4 MG/2 ML VIAL IVP ONE (07:59)
[2023-12-25] MEDS ORDERED: KETOROLAC 15 MG/ML 1 ML VIAL ONE (08:54)
[2023-12-25] MEDS ORDERED: LIDOCAINE 1% INJ 10MG/ML (20 ML MDV) ONE (08:54)
[2023-12-25] MEDS ORDERED: MIDAZOLAM 2 MG/2 ML VIAL ONE (08:54)
[2023-12-25] MEDS ORDERED: fentaNYL (PF) 50 MCG/ML 2 ML AMP ONE (08:54)
[2023-12-25] MEDS ORDERED: PROPOFOL 10 MG/ML 20 ML VIAL IV ONE (08:54)
[2023-12-25] MEDS: LIDOCAINE 1% INJ 10MG/ML (20 ML MDV) SQ ONE ×2 (09:38→09:57)
--- NOTE | 2023-12-25 09:55 | P.BCAON ---
Date of Procedure: 12/25/23 Preoperative Diagnosis: Mass left breast Postoperative Diagnosis: Same Procedure(s) Performed: Excision of left breast mass 5 x 5 cm, oncoplastic tissue transfer 38 cm Anesthesia: MARIA Surgeon: Rose Marie Baptiste Estimated Blood Loss (ml): 5 IV fluids (ml): 600 Pathology: other Condition: stable Disposition: same day Indications for Procedure: Palpable mass left breast FNA nondiagnostic Operative Findings: Dense fibrocystic breast tissue Description of Procedure: The patient was brought to the operative suite and following induction of anesthesia the left breast was prepped and draped in a sterile fashion. An incision was made in the periareolar region. This was carried down to the palpable mass. The mass was excised. It appeared to be cystic in nature with honeycombing of the cystic structure. This was 5 x 5 cm. Following excision the wound was well irrigated. Hemostasis was attained. Secondary to the defect under the nipple areolar complex superior pillar 3 x 2 cm was mobilized. An inferior pillar 4 x 2 cm was mobilized. The wound was well irrigated. Titanium clips were placed in the defect. Surgicel in powder form was placed. The superior and inferior pillar were brought together using 3-0 Vicryl suture. Subcutaneous tissue was closed with 3-0 Vicryl suture. The skin was closed with 4-0 Monocryl. The specimen was sent to pathology. 10 cc of 1% lidocaine were injected into the area of the incision. Surgical glue was placed. The patient tolerated the procedure in stable condition. All instrument and sponge counts were correct at the end of the case.
[2023-12-25 10:14] VITALS: TEMP 98.1
[2023-12-25 11:11] VITALS: RESP 18
[2023-12-25 11:34] VITALS: BP 140/86; PULSE 61
== END 2023-12-25 11:52 | disposition home or self-care (01) ==
LOC: OR 07:26
PROVIDERS: ATTEND Surgery
DX: D05.02 Lobular carcinoma in situ of left breast (principal); D24.2 Benign neoplasm of left breast; N60.12 Diffuse cystic mastopathy of left breast; N60.22 Fibroadenosis of left breast; N62 Hypertrophy of breast; N60.82 Other benign mammary dysplasias of left breast; I10 Essential (primary) hypertension; Z88.5 Allergy status to narcotic agent; Z79.899 Other long term (current) drug therapy
CPT/HCPCS: 88305; 88342; 19120; J2250; J1644; J1100; J2405; J2001; J3010; J1885; J2704

== ENCOUNTER → 2024-01-04 | Outpatient (CLI) | payer BC ==
[2024-01-04 13:51] VITALS: BP 120/88; PULSE 73; RESP 17; TEMP 98.1
--- NOTE | 2024-01-04 14:11 | P.BCPO ---
Progress Note - Text Progress Note Date: 01/04/24 Karthik there is status post [place] [id number]. 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 It also had an intraductal papilloma with focal usual ductal hyperplasia. Margins were negative. Examination: lungs: clear heart: RRR incision: clean and dry Plan: We discussed chemoprophylaxis secondary to the LCIS and she will meet with medical oncology Repeat left breast mammogram in 6 months with examination at that time Follow-up sooner any questions or concerns CC: Dr. Ware function Assessment: passed arm abduction post op education given pathology report given Post Op Education - Post Op Education Post Op Education Provided Date: 01/04/24 - Functional Assessment Performed?: Yes (arm abduction passed)
== END ==
LOC: WWCWWP 13:25
PROVIDERS: ATTEND Surgery
DX: N60.92 Unspecified benign mammary dysplasia of left breast (principal); D05.02 Lobular carcinoma in situ of left breast; D24.2 Benign neoplasm of left breast; Z88.5 Allergy status to narcotic agent

== ENCOUNTER → 2024-07-07 | Outpatient (CLI) | payer BC ==
--- NOTE | 2024-07-07 10:29 | MM ---
Reason for Exam: Follow-up at short interval from prior study. Last screening mammogram was performed 9 month(s) ago. Patient History: Menarche at age 12. First Full-Term at age 28. Hysterectomy at age 45. Hormonal Contraceptives, starting at age 18 for 17 years. 01/06/2011, Benign Excisional Biopsy on the right side. Maternal grandmother had breast cancer, age 60. Maternal aunt had breast cancer, age 60. Risk Values: Nora 5 year model risk: 1.3%. NCI Lifetime model risk: 11.8%. Prior Study Comparison: 04/26/2021 Left Diagnostic Mammogram, [facility]. 09/25/2022 Bilateral MG 3D screening mammo w/cad, [facility]. 10/01/2023 Bilateral MG 3D screening mammo w/cad, [facility]. Tissue Density: Left: The breasts are heterogeneously dense, which may obscure small masses. Findings: Analyzed By CAD. Couple surgical clips are noted anterior left breast the site of previous large rounded mass. Other areas of asymmetric density are unchanged. Chronic nodularity lateral left breast. Overall Assessment: Probably benign, BI-RAD 3 Management: Diagnostic Mammogram of both breasts. Annual exam right breast and continued postsurgical follow-up left breast. Results were given to the patient verbally at the time of exam. Patient should continue monthly self-breast exams. A clinical breast exam by your physician is recommended on an annual basis. This exam should not preclude additional follow-up of suspicious palpable abnormalities. Note on Nora scores and lifetime risk: 1. A Nora score greater than 3% is considered moderate risk. If this is the case, consider specialist referral to assess eligibility for a risk reducing agent. 2. If overall lifetime risk for the development of breast cancer is 20% or higher, the patient may qualify for future screening with alternating mammogram and breast MRI. [facility], , 07/07/2024 10:25 AM. Electronically signed and approved by: Lara Turner M.D. Radiologist
== END | disposition home or self-care (01) ==
LOC: RADMAMWWP 09:59
PROVIDERS: ATTEND Surgery
DX: N63.20 Unspecified lump in the left breast, unspecified quadrant (principal); R92.332 Mammographic heterogeneous density, left breast; Z80.3 Family history of malignant neoplasm of breast
CPT/HCPCS: 77061; 77065

== ENCOUNTER → 2024-08-15 | Outpatient (CLI) | payer BC ==
[2024-08-15 13:35] VITALS: BP 148/107; PULSE 89; RESP 17; TEMP 97.1
--- NOTE | 2024-08-15 13:58 | P.PN ---
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 Ware regarding an ultrasound abnormality behind the left nipople aerolar complex. She had a bilateral mammogram on 04-18-21 which led to a left breast diagnostic mammogram and ultrasound. This showed a cystic lesion and was considered Benign BIRAD 2. The patient does not feel any new lumps masses or nodules of concern in either breast. She has had cysts drained in the past. She states that at times she feels some twinging behind the left nipple areolar complex and wonders if this should be drained. She did have a right breast cyst removed approximately 10 years ago this was benign. She has not had any recent trauma or infection in the breast. She is not complaining of any nipple discharge or skin changes. The cyst come right before her period. She had a hysterectomy at 45, this was done for bleeding they left her ovaries. Bilateral mammogram on 09-25-22 BIRAD 2 Not complaining of any new lumps masses or nodules of concern in either breast. 10-04-23 Bilateral mammogram on 10-01-23 BIRAD 2 Patient was not complaining of any new lumps masses or nodules of concern in either breast. She continues to have some nodularity in the left post nipple areolar complex region which has been the same for the past several years. It is intermittent in nature. Nora 5 year risk: 1.3% lifetime risk: 12.1% 11-09-23 ultrasound of the left breast done on 11-08-23; septated cystic lesion seen at the area of palpable change in the left breast 11-28-23 FNA of area of concern 12 oclock left breast done on 11-09-23 hypocellular and fragments of adipose tissue and non-diagnostic 08-15-24 Patient underwent an resection of the nodule in the left breast with needle localization on 12-25-2023. This was done secondary to a palpable change in the left breast at the 12 o'clock position periareolar region, ultrasound from 11-08-2023 revealing a septated lesion at that site, and an FNA of that area which was nondiagnostic. The pathology from the excisional biopsy revealed atypical lobular hyperplasia/lobular carcinoma in situ. We discussed chemoprophylaxis and she agreed to meet with medical oncology. Patient had a left breast diagnostic mammogram performed on 07 07 24 this was BI-RADS 3, bilateral mammogram to be performed in 6 months. bilateral mammogram 09-30 BIRAD 2 She is doing detox with her chiropractor; she is not complaining of any new lumps or nodules of concern in her breast She choose not to see medical oncology Caffeine: 1 cup/day nicotine: none chocolate: weekly BCP: 20 years stopped 6 years ago, had a tubaligation hormones: none Family History: Sister: kidney cancer, metastatic to the lungs and at 25 mother: uterine cancer, breast cancer [place] Murphy maternal aunt: 3 had breast cancer no genetic testing done Hormonal History: menarche: 15 , breast fed: no, age at : 28 hysterectomy at 45, no cancer Surgical history: uterine ablation Hysterectomy Cholecystectomy Right breast cyst Medical History: none Social History: nicotine: none alcohol: occasional drugs: none - Constitutional Constitutional: Denies chills, Denies fever - EENT Eyes: denies blurred vision, denies pain Ears: deny: decreased hearing, tinnitus Ears, nose, mouth and throat: Denies headache, Denies sore throat - Breasts Breasts: bilateral: as per HPI - Cardiovascular Cardiovascular: Denies chest pain, Denies shortness of breath - Respiratory Respiratory: Denies cough - Gastrointestinal Gastrointestinal: Denies abdominal pain, Denies diarrhea, Denies nausea, Denies vomiting - Genitourinary (Female) Genitourinary: Denies dysuria, Denies hematuria - Menstruation Menstruation: Reports post hysterectomy - Musculoskeletal Musculoskeletal: Denies myalgias - Integumentary Integumentary: Denies pruritus, Denies rash - Neurological Neurological: Denies numbness, Denies weakness - Psychiatric Psychiatric: Denies anxiety, Denies depression - Endocrine Endocrine: Denies fatigue, Denies weight change - Hematologic/Lymphatic Comment: none - Allergic/Immunologic Allergic/Immunologic: Reports as per HPI Past Medical History Past Medical History: Hypertension Additional Past Medical History / Comment(s): heavy periods History of Any Multi-Drug Resistant Organisms: None Reported Past Surgical History: Breast Surgery, Section, Cholecystectomy, Tubal Ligation Additional Past Surgical History / Comment(s): benign rt breast lumpectomy, thyroid scope Past Anesthesia/Blood Transfusion Reactions: No Reported Reaction Past Psychological History: No Psychological Hx Reported Smoking Status: Smoker, current status unknown Past Alcohol Use History: Occasional Past Drug Use History: None Reported - Past Family History Sister(s) Family Medical History: Cancer Additional Family Medical History / Comment(s): lung,kidney Mother Family Medical History: Cancer, Thyroid Disorder Additional Family Medical History / Comment(s): uterine cancer Medications and Allergies Home Medications Medication Instructions Recorded Confirmed Type No Known Home Medications 09/22/21 09/22/21 History Allergies Allergy/AdvReac Type Severity Reaction Status Date / Time No Known Allergies Allergy Verified 09/22/21 14:10 Objective - Vital Signs Vital signs: Vital Signs Temp 97.1 F L 08/15/24 13:33 Pulse 89 08/15/24 13:33 Resp 17 08/15/24 13:33 BP 148/107 08/15/24 13:33 Pulse Ox 100 08/15/24 13:33 FiO2 Intake & Output 08/14/24 08/15/24 08/15/24 18:59 06:59 18:59 Weight 90.718 kg - Constitutional General appearance: Present: cooperative - EENT Eyes: Present: EOMI ENT: Present: hearing grossly normal - Neck Neck: Present: normal ROM - Respiratory Respiratory: bilateral: CTA - Cardiovascular Rhythm: regular Heart sounds: normal: S1, S2 - Integumentary Integumentary: Present: normal turgor - Musculoskeletal Musculoskeletal: Present: gait normal - Psychiatric Psychiatric: Present: A&O x's 3, appropriate affect, intact judgment & insight - Additional findings Additional findings: Breast Exam: BRA: 36DD inspection: Bilateral grade 2/3 ptosis, bilateral fungal infection under her breast Palpation: Right breast: Multi-positional exam fibrocystic changes no discrete dominant masses or nodules of concern Right axilla: No adenopathy of concern Left breast: Multi-positional exam fibrocystic changes no discrete dominant masses or nodules of concern, well-healed scar from prior surgery Left axilla: No adenopathy of concern Assessment and Plan Assessment: Impression: Change left breast 12 o'clock position periareolar region; revealed atypical lobular hyperplasia/carcinoma in situ. Breast mammogram 1 BI-RADS 3/bilateral mammogram diagnostic in 6 months Fungal infection under both breast Plan: Bilateral diagnostic mammogram 6 months Nystatin under both breast CC: DR. Ware
== END ==
LOC: WWCWWP 13:22
PROVIDERS: ATTEND Surgery
DX: D05.12 Intraductal carcinoma in situ of left breast (principal); B37.89 Other sites of candidiasis; Z80.3 Family history of malignant neoplasm of breast; Z88.5 Allergy status to narcotic agent